=== PATIENT | female | born 1955 | race Caucasian/White ===

== ENCOUNTER → 2017-04-08 05:51 | Day surgery (SDC) | payer BC ==
--- NOTE | 2017-03-28 20:29 | HP ---
HISTORY AND PHYSICAL: DATE OF ADMISSION/SURGERY: 04/08/17 DATE OF HISTORY AND PHYSICAL: 03/28/17 SURGEON: Dayne Rodas MD * (DICTATED BY CARLEE Glover) PROCEDURE: Left foot naviculocuneiform fusion, tibial bone graft. CHIEF COMPLAINT: Left foot pain. HISTORY OF PRESENT ILLNESS: Rosana is a 61-year-old female, who has ongoing pain in her left ankle. She has had numerous surgeries on this ankle in the past. She has a previous hind foot fusion with significant degenerative changes at the cuneonavicular level. She has undergone multiple cortisone injections under fluoroscopy and these seem to be less effective overtime. She is having a hard time making it to 3 months between her injections. She continues to have significant swelling in the foot and ankle. She denies any paresthesias or numbness. Denies any new injuries. At her last appointment on 03/01/17, she and Dr. Rodas discussed surgical intervention to fuse the cuneonavicular joint and she is here today for physical H and P to proceed with the procedure. She denies any problems with anesthesia in the past or with DVT or PE. She does endorse having a history of significant hypotension post anesthesia. At her last surgery, a few years ago, she had hypotension and very poor pain control. I was concerned that she may need to be admitted for control of her pain as well as hypotension. PAST MEDICAL HISTORY: Significant for hypertension, allergic rhinitis, chronic cough, GERD, dyslipidemia, and insomnia. PAST SURGICAL HISTORY: Significant for 12 left ankle surgeries including a fusion and right knee surgeries including ACL repair, total knee arthroplasty, 12 manipulations, and a total knee arthroplasty revision. MEDICATIONS: 1. Tessalon Perles 100 mg 1 capsule 2 to 3 times daily as needed. 2. Lansoprazole 30 mg daily. 3. Tramadol 50 mg as needed. 4. Colestipol HCl 1 g twice daily. 5. Atorvastatin 10 mg 1 tab daily. 6. Ibuprofen 800 mg 3 times a day as needed. 7. Zolpidem 6.25 mg daily at night. 8. Aspirin 81 mg daily. 9. Vitamin D3 1000 International Units twice daily. 10. Vitamin C 500 mg daily. 11. Tekturna HCT 150-25mg 1 tab daily. 12. Breo Ellipta 200/25 mcg per inhalation, 1 inhalation daily. 13. Levocetirizine 5 mg daily. ALLERGIES: COBALT. She also reports adverse reaction of diarrhea with ERYTHROMYCIN FAMILY MEDICAL HISTORY: Significant for mother with lymphoma, congestive heart failure. No family history of DVT or PE. SOCIAL HISTORY: Negative for tobacco use. She drinks about 14 drinks per week of alcohol and she denies any illicit drug use. REVIEW OF SYSTEMS: Positive for intermittent headache, chronic cough, diarrhea , her current complaint. She denies any history of DVT or PE and she endorses ability to walk a flight of stairs or a city block without chest pain or shortness of breath. Otherwise a 14 point review of systems was negative. PHYSICAL EXAMINATION GENERAL: She is a well-nourished, well-developed, 61-year-old female in no acute distress. She is alert and oriented x3. She ambulates with an antalgic gait. She has normal mood and affect. VITAL SIGNS: Height 64 inches, weight 204 pounds, blood pressure 132/78, respirations 18, temp 98.3. Pain level 3. BMI 35.0. HEENT: NCAT, PERRLA, EOMI, neck is supple. No palpable cervical lymph node. Thyroid is smooth and nontender. PULMONARY: Lungs clear to auscultation bilaterally with no wheezes, rales, or rhonchi. CARDIAC: Regular rate and rhythm. No murmurs, rubs, or gallops. No pedal edema, 2+ DP and PT pulses bilaterally. ABDOMEN: Soft and nontender. MUSCULOSKELETAL: Her skin shows an incision at the anterior aspect of the ankle but it is well healed. There is no surrounding erythema. No swelling or ecchymosis. There is no significant edema throughout the ankle joint. There is no gross deformity. She has very limited hind foot range of motion. She is tender to palpation over the cuneonavicular joint and has pain with passive stress of this joint. She is able to flex and extend at her MTP joint. Her sensation is intact to light touch bilaterally. DIAGNOSTIC STUDIES: Obtained on 03/01/17 of the left ankle showed diffuse osteopenia and osteoarthritis of the subtalar joint and the cuneonavicular joint. IMPRESSION: Left foot arthritis. PLAN: Rosana is scheduled to undergo left foot naviculocuneiform fusion with tibial bone graft with Dr. Dayne Rodas on 04/08/17. She will return to clinic in about 14 days for postop and suture removal. A prescription for pain medication will be sent to the patient's pharmacy of record on the day of operation. CARLEE GARCIA [id number]/[facility] #: [id number] ISAC
[~2017-04-08 05:51] MED LIST: Buffered Lidocaine 0.9% SYRIN* 5 ML/SYR SYRINGE INTRADERM ONE; Buffered Lidocaine 0.9% SYRIN* 5 ML/SYR SYRINGE ONE; Bupivacaine 0.5% SDV PF* 10-30ML VIAL ONE; Dexamethasone IV* 4 MG/ML 1 ML (4 MG) IV SLOW PU ONE; Dexamethasone IV* 4 MG/ML 1 ML (4 MG) ONE; DiMENhydriNATE IV* 50 MG/ML VIAL IV PUSH PRN; Famotidine IV* 10 MG/ML 2 ML (20 mg) IV ONE; Famotidine IV* 10 MG/ML 2 ML (20 mg) ONE; HYDROmorphone INJ* 1 MG/ML CARPUJECT SYRINGE IV PRN; HYDROmorphone INJ* 2 MG/ML CARPUJECT SYRINGE ONE; KETAMINE HCL* 50 MG/ML 10 ML VIAL ONE; Ketorolac INJ* 30 MG/ML 1 ML VIAL ONE; Lidocaine 2% PF * 5 ML VIAL ONE; Midazolam* 1 MG/ML 2 ML VIAL (2 MG) ONE; Naloxone* 0.4 MG/ML 1 ML VIAL IV PRN; Ondansetron INJ* 2 MG/ML VIAL ONE; ceFAZolin 2 GM PREMIX (*) 2 GM/50 ML BAG IVPB ONE; fentaNYL* 50 MCG/ML 2 ML VIAL (100 MCG VIAL) ONE; nitroGLYCERIN IV VIAL* 5 MG/ML VIAL ONE; oxyCODONE TAB* 5 MG TAB ONE
[2017-04-08] MEDS: fentaNYL* 50 MCG/ML 2 ML VIAL (100 MCG VIAL) IV PRN ×2 (10:11→10:23)
[2017-04-08 16:06] VITALS: BP 129/71
--- NOTE | 2017-04-09 07:26 | RAD ---
INDICATION: Posttraumatic osteoarthritis, left ankle and foot COMPARISONS: March 01, 2017 TECHNIQUE: Fluoroscopy was provided for a surgical procedure. Total fluoroscopy time is: 4.2 seconds FINDINGS: Spot images demonstrate partial removal of fixation plate and screws of the ankle and hindfoot. IMPRESSION: FLUOROSCOPY WAS PROVIDED FOR A SURGICAL PROCEDURE CPT II Codes: 6045F
--- NOTE | 2017-04-09 13:07 | OP ---
DATE OF OPERATION: 04/08/17 - [facility] DATE OF : 53 SURGEON: Dayne Rodas MD SENIOR POWER PLANT OPERATOR: Qi Cotter PA-C ANESTHESIOLOGIST: Riley Soto MD ANESTHESIA: MAC PRE-OP DIAGNOSIS: Previous talonavicular fusion and now naviculocuneiform arthritis, left midfoot. POST-OP DIAGNOSIS: Previous talonavicular fusion and now naviculocuneiform arthritis, left midfoot. OPERATIVE PROCEDURE: Hardware removal, left talonavicular joint; fusion, left naviculocuneiform joint with tibial bone graft. DESCRIPTION OF PROCEDURE: The patient was taken to the operating room where a longitudinal incision was reopened over the dorsal aspect of her left midfoot. We went lateral to the EHL tendon, basically down to bone, as this was a previously incised area. The plates were exposed over the talonavicular fusion. These were F3 plates. The screws were easily visible. The plates were not overgrown with bone. We attempted to remove the screws with the supplied F3 screwdriver. Three different screwdrivers broke during this process. We were only able to remove all the screws except for 3; 2 in the lateral plate, 1 in the medial plate. These screws were over-burred so the plates could be removed and then 2 other screws were removed using the [employer] screw removal kit. One of the more proximal screws was left. We then used the retractor to open the naviculocuneiform joint. A power brionna 2.4 mm in size was used to repair the joint for arthrodesis. Through proximal incision over the Gerdy's tubercle, cancellous bone was harvested through a corticotomy approximately 1 cm in size. This cancellous bone was mixed with some allograft chips and some DBX putty placed along the naviculocuneiform joint. We then patched some allograft chips proximally at Gerdy's tubercle closing the periosteum with 2-0 Vicryl subcu tissue and then Monocryl for the skin. Fixation of the naviculocuneiform joint was then performed under compression using a T-shaped plate and an L-shaped plate of the [employer] titanium mini frag set, 2.7 mm screws were used. X-rays intraoperatively showed satisfactory compression and alignment of the joint and the hardware. We then irrigated this dorsal wound and closed with 2-0 Vicryl, 3 -0 nylon and plaster dressing applied. [id number]/[facility] #: [id number] ISAC
== END | disposition home or self-care (01) ==
LOC: OR 05:51
PROVIDERS: ATTEND Orthopaedic Surgery
DX: M19.172 Post-traumatic osteoarthritis, left ankle and foot (principal); I10 Essential (primary) hypertension; K21.9 Gastro-esophageal reflux disease without esophagitis; E78.5 Hyperlipidemia, unspecified; D47.3 Essential (hemorrhagic) thrombocythemia
CPT/HCPCS: 76000; 88300; A9270-GY; C1713; C1776; C9359; J0690; J1100; J1170; J1885; J2250; J2405; J3010

== ENCOUNTER 2017-05-18 12:17 | Emergency (ER) | payer BC ==
--- OUTSIDE RECORDS SUMMARY | 2017-05-18 12:22 | XMS REPORT ---
:1955 External Reference #:[id number] Author Organization [facility] Address [address] [address] Phone [phone] Care Team Providers Name Role Phone Velma Villasenor MD Primary Care Physician Unavailable Payers Type Date Identification Numbers Payment Provider Subscriber Commercial Effective: Policy Number: [id number] BS [employer]ets Rosana Gramajo 2014 PayID: [id number] [address] [address] [place] [address] Medigap Part B Effective: 2012 Policy Number: [id number] [employer]ets Rosana Gramajo Expires: 2013 PayID: [id number] [address] [address] [place] [address] Medigap Part B Effective: 2010 Policy Number: [id number] BS Of [place] Gramajo Expires: 2012 PayID: [id number] [address] [address] [place] [address] Problems Date Description Provider Status Onset: 07/11/2016 Cough Genevieve Ch MD Active Onset: 07/11/2016 Difficulty breathing Genevieve Ch MD Active Onset: 07/11/2016 Essential hypertension Genevieve Ch MD Active Onset: 07/11/2016 Allergic rhinitis Genevieve Ch MD Active Onset: 08/14/2016 Obstructive sleep apnea syndrome Genevieve Ch MD Active Family History Date Family Member(s) Problem(s) Comments General Heart Disease Father due to Dementia () Mother due to CHF () Mother due to Lymphoma () Siblings 1 Social History Type Date Description Comments Marital Status 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 Cigarette Use Former Cigarette Smoker ETOH Use Drinks 5 Alcoholic Beverages Per Week Recreational Drug Use Never Used Drugs Smoking Patient is a former smoker quit in 1997, smoked for 20yrs 1PPD Daily Caffeine Consumes on average 8oz of iced tea per day Daily Caffeine Consumes on average 1 soda per less than one per day day Exercise Type/Frequency Exercises sporadically Allergies, Adverse Reactions, Alerts Date Description Reaction Status Severity Comments 09/24/2013 Orick active 08/14/2016 Erythromycin active Severe Diarreah 06/25/2013 NKDA inactive Medications Medication Date Status Form Strength Qnty SIG Indications Ordering Provider Valium 04/18 Active Tablets 2mg 30tab take 1-2 s tablet by Clark, mouth every M.D. 6 hours as needed for muscle spasm. Oxycodone HCL 04/08 Active Tablets 5mg 40tab 1-2 tabs by s mouth every Clark, 4-6 hours M.D. as needed Walker 03/28 Active Misc Disp #1 Handy Rodas Knee Scooter 03/28 Active Disp #1 Handy Rodas Benzonatate 10/26 Active Capsules 100mg 30cap 1 capsule R05 s 2-3 times a Jing, day as MD needed Xylitol 07/11 Active Nasal 1-2 sprays J30.9 [place] each Jing, nostril twice daily Lansoprazole Active 30mg daily Unknown /0000 Tramadol HCL Active 50mg prn Unknown / Colestipol HCL Active Tablets 1gm 1 by mouth Unknown /0000 twice a day Atorvastatin Active Tablets 10mg 1 by mouth Unknown Calcium /0000 every day Ibuprofen Active Tablets 800mg by mouth Unknown /0000 three times a day as needed Qnasl Active Aerosol 80mcg/Act 2 Unknown /0000 inhalations in each nostril once daily Zolpidem Tartrate Active Tablets 6.25mg take one Unknown ER /0000 ER tablet by mouth at night Aspirin Active Chewtabs 81mg 1 by mouth Unknown /0000 every day Vitamin D3 High Active Capsules 1000Unit 2 by mouth Unknown Potency /0000 every day Vitamin C Active Capsules 500mg 1 by mouth Unknown /0000 every day Tekturna HCT Active Tablets 150-25mg 1 tab daily Unknown Breo Ellipta Active Aerosol 200-25mcg one Unknown / inhalation daily Levocetirizine Active Tablets 5mg 1 by mouth Unknown Dihydrochloride every day Cyclobenzaprine 04/15 Hx Tablets 5mg 15tab 1 tab by Dayne FINCH s mouth pavan Rodas, - times a day M.DLuis Eduardo 04/18 as needed Metoprolol-Hydroch 07/20 Hx Tablets 50-25mg 30tab 1 tablet by Genevieve lorothiazide s mouth daily Mikhail Ch MD 08/13 Hydrochlorothiazid 07/11 Hx Tablets 25mg 30tab 1 tablet I10 Genevieve e s daily Mikhail Ch MD 08/13 Amlodipine 07/11 Hx Tablets 5mg 30tab 1 tablet by I10 Genevieve Besylate s mouth daily Mikhail Ch MD 10/25 Oxycodone HCL 09/10 Hx Tablets 5mg 60tab 1-2 po qid Dayne s prn Clark - Handy 09/23 Lipitor Hx 10mg Unknown / - 07/10 Lisinopril-Hydroch Hx Unknown lorothiazide / - 08/14 Claritin Hx Chewtabs 5mg Unknown - 10/25 Vital Signs Date Vital Result Comment 05/09/2017 Height 64 inches 5'4" Weight 204.00 lb Heart Rate 66 /min Respiratory Rate 15 /min Body Temperature 98.4 F Pain Level 0 BMI (Body Mass Index) 35.0 kg/m2 04/18/2017 Height 64 inches 5'4" Weight 204.00 lb Heart Rate 93 /min BP Systolic 133 mmHg BP Diastolic 83 mmHg Body Temperature 97.9 F BMI (Body Mass Index) 35.0 kg/m2 03/28/2017 Height 64 inches 5'4" Weight 204.00 lb BP Systolic 132 mmHg BP Diastolic 78 mmHg Respiratory Rate 18 /min Body Temperature 98.3 F Pain Level 3 BMI (Body Mass Index) 35.0 kg/m2 03/01/2017 Height 64 inches 5'4" Weight 190.00 lb BP Systolic 126 mmHg BP Diastolic 82 mmHg Respiratory Rate 18 /min Pain Level 3 BMI (Body Mass Index) 32.6 kg/m2 10/26/2016 Height 64 inches 5'4" Weight 216.00 lb Heart Rate 74 /min BP Systolic Sitting 120 mmHg BP Diastolic Sitting 76 mmHg Respiratory Rate 16 /min O2 % BldC Oximetry 97 % room air BMI (Body Mass Index) 37.1 kg/m2 08/14/2016 Height 64 inches 5'4" Weight 200.00 lb Heart Rate 82 /min BP Systolic Sitting 132 mmHg BP Diastolic Sitting 80 mmHg Respiratory Rate 16 /min Pain Level 5 Joint pain O2 % BldC Oximetry 96 % BMI (Body Mass Index) 34.3 kg/m2 07/11/2016 Height 64 inches 5'4" Weight 205.00 lb Heart Rate 77 /min BP Systolic Sitting 118 mmHg BP Diastolic Sitting 82 mmHg Respiratory Rate 16 /min Pain Level 0 O2 % BldC Oximetry 98 % BMI (Body Mass Index) 35.2 kg/m2 07/15/2015 Height 64 inches 5'4" Weight 190.00 lb Pain Level 8 BMI (Body Mass Index) 32.6 kg/m2 01/27/2015 Height 64 inches 5'4" Weight 190.00 lb Pain Level 5 BMI (Body Mass Index) 32.6 kg/m2 07/29/2014 Height 64 inches 5'4" Weight 190.00 lb Pain Level 7 BMI (Body Mass Index) 32.6 kg/m2 04/08/2014 Height 64 inches 5'4" Weight 190.00 lb Pain Level 2 BMI (Body Mass Index) 32.6 kg/m2 01/06/2014 Height 64 inches 5'4" Heart Rate 85 /min BP Systolic 124 mmHg BP Diastolic 91 mmHg 09/24/2013 Height 64 inches 5'4" Weight 175.00 lb Heart Rate 80 /min Pain Level 4 BMI (Body Mass Index) 30.0 kg/m2 06/25/2013 Height 64 inches 5'4" Weight 175.00 lb Heart Rate 76 /min BP Systolic 135 mmHg BP Diastolic 96 mmHg BMI (Body Mass Index) 30.0 kg/m2 Results Test Date Test Result H/L Range Note Laboratory test 04/08/2017 Surgical Pathology SEE RESULT BELOW 1 finding Laboratory test 04/07/2017 Cancellous Chips 5cc SEE RESULTS BELO 2, 3 finding <SEE NOTE> DBX 2.5 SEE RESULTS BELO <SEE NOTE> 2, 4 Basic Metabolic Panel 08/26/2012 Sodium 140 mmol/L 133-145 Potassium 4.8 mmol/L 3.5-5.0 Chloride 109 mmol/L 101-111 Co2 Carbon Dioxide 26.0 mmol/L 22-32 Anion Gap 5.0 mmol/L 2-11 Glucose 78 mg/dL 70-100 Blood Urea Nitrogen 18 mg/dL 6-24 Creatinine 0.80 mg/dL 0.50-1.40 BUN/Creatinine Ratio 22.5 High 8-20 Calcium 9.8 mg/dL 8.1-9.9 Egfr Non- 73.9 >60 Egfr 95.1 >60 5 CBC Auto Diff 08/26/2012 White Blood Count 6.7 10^3/uL 4.8-10.8 Red Blood Count 4.40 10^6/uL 4.0-5.4 Hemoglobin 13.9 g/dL 12.0-16.0 Hematocrit 41 % 35-47 Mean Corpuscular Volume 93 fL 80-97 Mean Corpuscular Hemoglobin 32 pg High 27-31 Mean Corpuscular HGB Conc 34 g/dL 31-36 Red Cell Distribution Width 14 % 10.5-15 Platelet Count 416 10^3/uL 150-450 Mean Platelet Volume 8 um3 7.4-10.4 Abs Neutrophils 4.3 10^3/uL 1.5-7.7 Abs Lymphocytes 1.7 10^3/uL 1.0-4.8 Abs Monocytes 0.5 10^3/uL 0-0.8 Abs Eosinophils 0.1 10^3/uL 0-0.6 Abs Basophils 0.1 10^3/uL 0-0.2 Abs Nucleated RBC 0.01 10^3/uL Granulocyte % 63.8 % 38-83 Lymphocyte % 25.7 % 25-47 Monocyte % 7.7 % 1-9 Eosinophil % 1.9 % 0-6 Basophil % 0.9 % 0-2 Nucleated Red Blood Cells % 0.1 1 SEE RESULT BELOW Name: ROSANA GRAMAJO : [address]: Dayne Rodas MD Acct: [id number] Unit: [id number] AGE: 61 Location: OR Re04/08/17 SEX: F Status: REG [facility] [place] SPEC: [id number] CATHY: 04/08/17-[address]: Dayne Rodas MD REQ: [id number] RECD: 04/08/17 STATUS: SOUT _ ORDERED: LEVEL 1 FINAL DIAGNOSIS Ankle, left, hardware removal: Foreign body (orthopedic hardware) (Gross diagnosis). PRE-OPERATIVE DIAGNOSIS Post traumatic osteoarthritis left ankle and foot GROSS DESCRIPTION The specimen is received fresh labeled, Left Ankle Hardware, and consists of two green metallic irregular plates with multiple ovoid holes measuring 3.8 by up to 1.3 x 0.1 cm and 4.1 by up to 1.6 x 0.1 cm. The following inscriptions are identified, respectively: [id number] M0 02900 QU0253; 131 [id number]. Received separately in the same container are six green metallic threaded Cortez-headed screws ranging from 2.2 x 0.2 cm to 2.6 x 0.2 cm and four gold metallic partially intact threaded Cortez-headed screws averaging 2.5 x 0.2 cm. Per established hospital medical staff protocol, no tissue is submitted. Gross only. Signed (signature on file) Pippa Fairchild MD 1140 END OF REPORT * ML=Testing performed at Main Lab DEPARTMENT OF PATHOLOGY, [address] [place] [address] Arnel Sheldon M.D. Director [facility] # [id number] 2 POST-TRAUMATIC OSTEOARTHRITIS, LEFT ANKLE AND FOOT 3 SEE RESULTS BELOW [id number] CANC CHIPS 5CC TRANSFUSED 04/08/17 07 [id number] CANC CHIPS 5CC TRANSFUSED 04/08/17705 4 SEE RESULTS BELOW [id number] DBX 2.5 TRANSFUSED 04/08/17705 5 Because ethnic data is not always readily available, this report includes an eGFR for both -Americans and non- Americans. The National Kidney Disease Education Program (NKDEP) does not endorse the use of the MDRD equation for patients that are not between the ages of 18 and 70, are , have extremes of body size, muscle mass, or nutritional status, or are non- or non-. According to the National Kidney Foundation, irrespective of diagnosis, the stage of the disease is based on the level of kidney function: Stage Description GFR(mL/min/1.73 m(2)) 1 Kidney damage with normal or decreased GFR 90 2 Kidney damage with mild decrease in GFR 60-89 3 Moderate decrease in GFR 30-59 4 Severe decrease in GFR 15-29 5 Kidney failure <15 (or dialysis) Procedures Date CPT Code Description Status 04/08/2017 36783 Arthrodesis Midtarsal/Tarsometatarsal Single Completed 04/08/2017 38892 Arthrodesis Midtarsal/Tarsometatarsal Single Completed 04/08/2017 Bone Graft Any Donor Area Minr Or SM (Eg Dowel Or Completed Button) 04/08/2017 Bone Graft Any Donor Area Minr Or SM (Eg Dowel Or Completed Button) 04/08/2017 Removal Implant Deep Wire,Screw Nail,Balaji Or Plate Completed 07/25/2016 64257 Sleep Study Unattended,HRT Rate,Oxygen Sat,Resp Completed Effort/Airflow 12/05/2012 22309 Rad Exam; Foot Limited Completed 09/22/2012 72574 Short Leg Cast Completed 09/22/2012 14346 Rad Exam; Foot Limited Completed 09/22/2012 55570 Rad Exam; Foot Comp Completed 09/02/2012 45903 Arthrodesis Midtarsal/Tarsometatarsal Single Completed 09/02/2012 03566 Arthrodesis Midtarsal/Tarsometatarsal Single Completed 09/02/2012 89190 Bone Graft, Any Donor Area Major Or Large Completed 09/02/2012 50571 Bone Graft, Any Donor Area Major Or Large Completed 08/27/2011 90912 Rad Exam; Foot Limited Completed 08/27/2011 25663 Rad Exam; Ankle Comp Completed 01/22/2011 86791 Rad Exam; Ankle Comp Completed Encounters Type Date Location Provider CPT E/M Dx Office Visit 03/01/2017 [facility] 33028 M19.172 9:30a Ndihi Murrell Office Visit 10/26/2016 [facility] [address] R05 9:30a [facility] G47.33 Office Visit 08/14/2016 2:00p [facility] [address] G47.33 [facility] R05 Office Visit 07/11/2016 11:00a Pul[place] [address] R05 [facility] T46.4x5A J30.9 R06.83 R35.1 R68.2 H04.123 K21.9 Office Visit 07/15/2015 11:30a [facility] 11016 M19.072 Nidhi Murrell Office Visit 01/27/2015 2:00p [facility] 06162 M19.072 CLayla Murrell Office Visit 07/29/2014 2:00p [facility] 11588 715.17 CLayla Murrell 719.47 Office Visit 04/08/2014 4:15p [facility] 30036 715.17 [facility] Handy 719.47 Office Visit 01/06/2014 3:15p [facility] Dayne Rodas M.D. 86215 715.17 Of [facility] Office Visit 09/24/2013 1:00p [facility] Dayne Rodas M.D. 63251 715.17 Of [facility] Office Visit 06/25/2013 4:00p [facility] Dayne Rodas M.D. 76690 715.17 Of [facility] Office Visit 03/27/2013 4:00p [facility] Dayne Rodas M.D. 38289 715.17 Of C.[facility] Office Visit 12/26/2012 4:30p [facility] Dayne Rodas M.D. 12725 715.17 Of C.M.[facility]. Office Visit 12/05/2012 9:45a [facility] Dayne Rodas M.D. 58180 715.17 Of C.M.[facility]. Office Visit 08/20/2012 12:45p [facility] Dayne Rodas M.D. 70181 715.17 Of [facility] Office Visit 07/25/2012 4:15p [facility] Dayne Rodas M.D. 33723 715.17 Of C.[facility] Office Visit 02/01/2012 9:30a [facility] Dayne Rodas M.D. 98096 715.17 Of C.[facility]. Office Visit 08/27/2011 9:30a [facility] Dayne Rodas M.D. 33959 715.17 Of C.M.[facility]. Office Visit 08/01/2011 4:15p [facility] Dayne Rodas M.D. 74526 728.71 Of C.M[facility]. Office Visit 06/13/2011 4:00p [facility] Dayne Rodas M.D. 90853 726.71 Of C.[facility] Office Visit 05/29/2011 8:45a [facility] Silas López M.D. 07653 726.71 Of C[facility] Office Visit 05/01/2011 8:00a [facility] Silas López M.D. 19552 726.71 Of [facility] Office Visit 03/06/2011 8:00a [facility] Rohith Myrick 27261 726.71 Of Josh Parra Office Visit 01/22/2011 9:15a [facility] Sharla 39257 726.71 Of Nidhi Stapleton M.D. Plan of Care Future Appointment(s):05/30/2017 9:00 am - Dayne Rodas M.D. at [facility]05/09/2017 - Dayne Rodas M.D.M19.172 Post-traumatic osteoarthritis, left ankle and footNew Xrays:Foot Left 3+ VWSFollow up:3 weeks
[2017-05-18] MEDS ORDERED: Diazepam SYRINGE* 5 MG/ML 2 ML SYRINGE (10 MG total) IV ONE (12:41)
[2017-05-18] MEDS ORDERED: Dexamethasone IV* 4 MG/ML 5 ML VIAL (20 MG) IVPB ONE (12:41)
[2017-05-18] MEDS ORDERED: Ketorolac INJ* 30 MG/ML 1 ML VIAL IV PUSH ONE (12:41)
[2017-05-18] MEDS ORDERED: Diazepam INJ (NF) 5 MG/ML 10 ML VIAL (50 MG TOTAL) IV ONE (13:00)
[2017-05-18 13:27] LABS: ABS Basophils 0.1 10^3/ul (0-0.2); ABS Eosinophils 0.1 10^3/ul (0-0.6); ABS Monocytes 0.7 10^3/ul (0-0.8); ABS Nucleated RBC 0 10^3/ul; Eosinophil % 0.7 % (0-6); Hematocrit 37 % (35-47); Hemoglobin 12.6 g/dl (12.0-16.0); Mean Corpuscular HGB Conc 34 g/dl (31-36); Mean Corpuscular Hemoglobin 30 pg (27-31); Mean Corpuscular Volume 89 fL (80-97); Mean Platelet Volume 8 um3 (7.4-10.4); Nucleated Red Blood Cells % 0; Platelet Count 612 10^3/ul (150-450); Red Blood Count 4.21 10^6/ul (4.0-5.4); Red Cell Distribution Width 13 % (10.5-15); White Blood Count 8.8 10^3/ul (3.5-10.8)
[2017-05-18 13:38] LABS: INR 0.98 (0.77-1.02)
[2017-05-18 13:42] LABS: EGFR Non-African American 89.2 (>60)
[2017-05-18] MEDS ORDERED: Potassium Chlor TAB* 20 MEQ TAB.ER PO ONE (13:48)
[2017-05-18] MEDS ORDERED: HYDROmorphone INJ* 2 MG/ML CARPUJECT SYRINGE IV SLOW PU ONE (14:24)
--- NOTE | 2017-05-18 15:46 | RAD ---
Indication: Evaluate for cord compression. Image sequences: Sagittal T1, T2, STIR, axial T2 and gradient echo images of the cervical spine were obtained. The vertebral bodies appear normal in height. There is straightening of the normal lordosis. The atlantoaxial space is unremarkable. The visualized fantasma and brainstem are unremarkable. At C2-C3 and C3-C4 there is no disc protrusion. At C4-C5 there is spondylitic ridge with bilateral uncovertebral joint hypertrophy narrows both foramen. At C5-C6 spondylitic ridge flattens the thecal sac. Small to moderate Broad-based protrusion is noted. Bilateral uncovertebral hypertrophy narrows both foramen worse on the right than on the left. There may be some mild spinal stenosis at this level. At C6-C7 spondylitic ridge with broad-based protrusion flattens the thecal sac. Bilateral uncovertebral joint hypertrophy narrows both intervertebral foramen. There may be some mild increased signal in the spinal cord which may represent mild myelomalacia. Mild to moderate degree of spinal stenosis is noted. At C7-T1 the disc space appears normal. IMPRESSION: C5-C6 spondylitic ridge with broad-based protrusion and right foraminal stenosis with mild to moderate spinal C6-C7 degenerative disc disease, broad-based protrusion, spondylitic ridge and bilateral uncovertebral joint hypertrophy narrows both intervertebral foramen. There may be some moderate degree of spinal stenosis at this level. There may be some mild myelomalacia with minimal increase in signal cervical spinal cord at this level.
[2017-05-18 17:19] VITALS: BP 138/78
--- NOTE | 2017-05-18 17:27 | ED ---
Florentin Walter Nilda, scribed for Ashley Nolan MD on 05/18/17 at 1252 . Neck Pain - HPI Summary HPI Summary: This patient is a 61 year old F BIBA to [facility] accompanied by with a chief complaint of constant severe neck pain that radiates to bilat shoulder for the past 2 weeks that worsened yesterday. The patient rates the pain 10/10 in severity. Symptoms aggravated by movement, and alleviated by rest. Patient states Tylenol and Oxycodone do not alleviate pain. Patient reports limited ROM in bilat UE secondary to pain (unable to lift arms past stomach). Patient denies numbness in hands, urinary or bowel symptoms or incontinence, and previous injury. She notes recent ankle fusion a few weeks ago for necrotic joints, for which she was on the table for 2 hours. - History of Current Complaint Stated Complaint: NECK PAIN Time Seen by Provider: 05/18/17 12:18 Hx Obtained From: Patient Onset/Duration Of Injury/Symptoms: Weeks Mechanism Of Injury: No Known Trauma Timing: Constant Onset/Duration: Sudden Onset, Started weeks ago, Still Present Severity Currently: Severe Pain Intensity: 10 Pain Scale Used: 0-10 Numeric Location: Discrete At: - neck and bilat shoulders Character: Stiff Aggravating Factors: Movement Alleviating Factors: Position Associated Signs & Symptoms: Positive: Nuchal Rigity. Negative: Swelling, Redness, Bruising, Fever, Weakness, Headache, Paresthesia - Allergies/Home Medications Allergies/Adverse Reactions: Allergies Allergy/AdvReac Type Severity Reaction Status Date / Time cobalt Allergy Intermediate See Comment Verified 05/18/17 12:46 rofecoxib Allergy Unknown Unknown Verified 05/18/17 12:46 Reaction Details amoxicillin AdvReac Intermediate Abdominal Verified 05/18/17 12:46 Pain clavulanic acid AdvReac Intermediate Abdominal Verified 05/18/17 12:46 Pain SEAFOOD Allergy Unknown Uncoded 04/08/17 06:21 Reaction Details Home Medications: Home Medications Aliskiren/Hydrochlorothiazide [Tekturna Hct 150-25 mg Tablet] 1 tab PO DAILY [History Confirmed 05/18/17] Beclomethasone Dipropionate [Qnasl] 17.4 gm ALT NARE QAM 05/18/17 [History Confirmed 05/18/17] Ibuprofen TAB* [Motrin TAB* 800 MG] 800 mg PO Q8HR PRN 05/18/17 [History Confirmed 05/18/17] Lansoprazole SOLUTAB* [Prevacid Solutab*] 30 mg PO DAILY 05/18/17 [History Confirmed 05/18/17] Zolpidem CR (NF) [Ambien CR (NF)] 6.25 mg PO BEDTIME 05/18/17 [History Confirmed 05/18/17] oxyCODONE TAB* [Roxycodone TAB 5 mg*] 5 - 10 mg PO .Q4-6H PRN MDD 80 mg [History Confirmed 05/18/17] traMADol TAB* [Ultram*] 50 mg PO TID PRN 05/18/17 [History Confirmed 05/18/17] PMH/Surg Hx/FS Hx/Imm Hx Endocrine/Hematology History: Reports: Hx Anticoagulant Therapy - not recent Denies: Hx Diabetes, Hx Systemic Lupus Erythematosus Cardiovascular History: Reports: Hx Hypertension - ON MEDS, Other Cardiovascular Problems/Disorders - HIGH CHOLESTEROL Denies: Hx Angina, Hx Cardiomegaly, Hx Congestive Heart Failure, Hx Coronary Artery Disease, Hx Pacemaker/ICD, Hx Peripheral Vascular Disease, Hx Rheumatic Fever, Hx Valvular Heart Disease Respiratory History: Denies: Hx Asthma, Hx Pulmonary Edema, Hx Pulmonary Embolism, Hx Sleep Apnea , Other Respiratory Problems/Disorders GI History: Reports: Other GI Disorders - DIARRHEA RELATED TO ABDULLAHI Comment Only: Hx Gastroesophageal Reflux Disease - TAKES PREVACID FOR PROTECTION ONLY History: Denies: Hx Dialysis, Hx Renal Disease Musculoskeletal History: Reports: Hx Arthritis - JOINTS, KNEES ANKLES, Other Musculoskeletal History - RIGHT TOTAL KNEE TWO TIMES Denies: Hx Rheumatoid Arthritis Sensory History: Denies: Hx Cataracts, Hx Contacts or Glasses, Hx Glaucoma, Hx Hearing Aid Opthamlomology History: Denies: Hx Cataracts, Hx Contacts or Glasses, Hx Glaucoma Psychiatric History: Denies: Hx Panic Disorder - Cancer History Hx Chemotherapy: No - Surgical History Surgery Procedure, Year, and Place: left ankle fusions (multiple); right TKR and replacement 2009, ERCP 2011, gallbladder remover 03/19/12. NUMEROUS SURGERY ON LEFT ANKLE [facility] [place] [place]. AT LEAST 15 SURGERIES Hx Anesthesia Reactions: Yes - HYPOTENSIVE AFTER SURGERY. DOESN'T WANT SPINAL Infectious Disease History: Reports: Hx Shingles Denies: Traveled Outside the [place] in Last 30 Days - Family History Known Family History: Positive: Hypertension - Social History Alcohol Use: Weekly Alcohol Amount: 2 BEERS A WEEK Substance Use Type: Reports: None, Prescribed Smoking Status (MU): Former Smoker Have You Smoked in the Last Year: No Review of Systems Positive: Other - negative bowel incontinence Positive: other - negative urinary symptoms . Negative: incontinence Positive: Other - neck pain with bilat shoulder pain, limited ROM in bilat UE and neck secondary to pain; negative previous injury Negative: Numbness - negative numbness in hands All Other Systems Reviewed And Are Negative: Yes Physical Exam - Summary Physical Exam Summary: VITAL SIGNS: Reviewed. GENERAL: Patient is a well-developed and nourished female who is lying comfortable in the stretcher. Patient is not in any acute respiratory distress. HEAD AND FACE: No signs of trauma. No ecchymosis, hematomas or skull depressions. No sinus tenderness. EYES: PERRLA, EOMI x 2, No injected conjunctiva, no nystagmus. EARS: Hearing grossly intact. Ear canals and tympanic membranes are within normal limits. MOUTH: Oropharynx within normal limits. NECK: Supple, trachea is midline, no adenopathy, no JVD, no carotid bruit, tender over right side of neck, unable to move neck in any direction because of pain (no flexion, extension, or side to side movement) CHEST: Symmetric, no tenderness at palpation LUNGS: Clear to auscultation bilaterally. No wheezing or crackles. CVS: Regular rate and rhythm, S1 and S2 present, no murmurs or gallops appreciated. ABDOMEN: Soft, non-tender. No signs of distention. No rebound no guarding, and no masses palpated. Bowel sounds are normal. EXTREMITIES: FROM in all major joints, no edema, no cyanosis or clubbing. NEURO: Alert and oriented x 3. Speech is normal and follows commands. Unable to abduct both arms beyond 20 degrees due to pain. Sensory exam intact. SKIN: Dry and warm Triage Information Reviewed: Yes Vital Signs Reviewed: Yes Diagnostics - Laboratory Result Diagrams: 05/18/17 13:16 05/18/17 13:16 Lab Statement: Any lab studies that have been ordered have been reviewed, and results considered in the medical decision making process. - Radiology MRI C-spine Radiology Interpretation Completed By: Radiologist - MRI reveals C5-C6 spondylitic ridge with broad-based protrusion and right foraminal stenosis with mild to moderate spinal C6-C7 degenerative disc disease, broad-based protrusion , spondylitic ridge and bilateral uncovertebral joint hypertrophy narrows both intervertebral foramen. There may be some moderate degree of spinal stenosis at this level. There may be some mild myelomalacia with minimal increase in signal cervical spinal cord at this level. Dr. Nolan has reviewed this radiology report. Re-Evaluation - Re-Evaluation First Eval Re-Evaluation Time: 16:44 Comment: Patient was informed that alkaline phosphatases are elevated and she is aware that it's high. She is being followed by GI for this. I ordered lab to fractionate Alkaline phosphatase. Pt advised to have PCP follow up with this issue. Neck Course/Dx - Course Assessment/Plan: Pt is a 61 y/o who came in with neck pain that radiates to shoulders and arms. MRI showed herniated disc. Case discussed with Radha who is the PA for Dr. Coles (Neurosurgeon). She and Dr. Coles reviewed MRI. They decided pt can be D/C home with steroids and pain medications. Pt advised with plan. Pt agrees. She states oxycodone at home is not doing much for pain. Pt will be given Dilauded and Decadron. She was advised to call Dr. Coles office Saturday morning to confirm appointment at 2pm on 05/20/17. Dx Cervical herniated disc, cervical spinal stenosis, and bilateral cervical radiculopathy. - Diagnoses Provider Diagnoses: Herniated disc, cervical, Cervical spinal stenosis, Cervical radiculopathy - Physician Notifications Discussed Care Of Patient With: Yasmeen - PA of Dr. Coles (Neurosurgery) Time Discussed With Above Provider: 16:36 Instructed by Provider To: Other - Reviewed MRI with Dr. Coles, and they agree that pt may be D/C home with steroids and pain medications. Dr. Coles agrees to see pt in office on Saturday. Discharge - Discharge Plan Condition: Stable Disposition: HOME Prescriptions: Dexamethasone TAB* [Decadron TAB*] 4 mg PO Q8HR #20 tab Dexamethasone TAB* [Decadron TAB*] 4 mg PO Q8HR #20 tab HYDROmorphone TAB* [Dilaudid TAB*] 4 mg PO Q6H PRN #20 tab MDD 4 PRN Reason: Pain HYDROmorphone TAB* [Dilaudid TAB*] 4 mg PO Q6H PRN #20 tab MDD 4 PRN Reason: Pain Patient Education Materials: Cervical Spinal Stenosis (ED), Cervical Radiculopathy (ED) Referrals: Reinaldo Coles MD [Medical Doctor] - 05/20/17 Velma Fuentes MD [Primary Care Provider] - 3 Days Additional Instructions: Call Dr. Coles office on Saturday05/20/17 morning to confirm appointment at his office for Saturday05/20/17 at 2pm. Follow up with primary care physician regarding your elevated Alkaline Phosphatase. RETURN TO THE EMERGENCY DEPARTMENT FOR CHANGING OR WORSENING SYMPTOMS. The documentation as recorded by the Florentin sanchez Nilda accurately reflects the service I personally performed and the decisions made by , Ashley Nolan MD.
== END 2017-05-18 17:28 | disposition home or self-care (01) ==
LOC: ED 12:17
DX: M50.123 Cervical disc disorder at C6-C7 level with radiculopathy (principal); M48.02 Spinal stenosis, cervical region; Z87.891 Personal history of nicotine dependence; Z88.8 Allergy status to other drugs, medicaments and biological substances; Z88.3 Allergy status to other anti-infective agents
CPT/HCPCS: 36415; 72141; 80053; 83735; 84080; 85025; 85610; 85730; 86140; 96374; 96375; 99283; A9270-GY; J1100; J1170; J1885; J3360

== ENCOUNTER 2018-06-24 08:37 | Day surgery (SDC) | payer BC ==
--- NOTE | 2018-06-19 13:44 | HP ---
PREOPERATIVE HISTORY AND PHYSICAL: DATE OF ADMISSION/SURGERY: 06/24/18 DATE OF OFFICE VISIT/ENCOUNTER: 06/18/18 ATTENDING SURGEON: Nallely Byrne MD * (DICTATED BY CARLEE MORA) PROCEDURE: Trigger finger release, right ring finger. HISTORY OF PRESENT ILLNESS: This is a 62-year-old female who complains of locking and catching of her right ring finger ongoing for 4 to 5 months. She does not recall any specific injury. She has most trouble at night when her finger will actually lock and she has to release it using her other hand; this is quite painful. She has been kamila taping her finger, which helps a little bit but the triggering persists. She denies any associated numbness or tingling. She is interested in pursuing surgical intervention for this problem. Her primary care physician is Dr. Fuentes and she was prescribed tramadol for chronic orthopedic pain. PAST MEDICAL HISTORY: 1. Allergic rhinitis. 2. Hypertension. 3. Hypercholesterolemia. 4. Chronic pain related to orthopedic issues including cervical spine fusion, ankle fusion, and right total knee arthroplasty. PAST SURGICAL HISTORY: 1. C5-C7 fusion in 2017. 2. Left ankle fusion. 3. Right total knee arthroplasty. 4. Cholecystectomy. CURRENT MEDICATIONS: 1. Aspirin 81 mg daily. 2. Atorvastatin calcium 10 mg daily. 3. Ibuprofen 800 mg 3 times a day p.r.n. 4. Lansoprazole 30 mg daily. 5. Lyrica 25 mg b.i.d. 6. Qnasl 80 mcg/act 2 inhalations each nostril once daily. 7. Tekturna HCT 150/25 mg daily. 8. Tramadol 50 mg 1 to 2 tabs q.4 to 6 hours p.r.n. pain. 9. Vitamin C 500 mg daily. 10. Vitamin D3 high potency 1000 units 2 daily. 11. Zolpidem tartrate ER 6.25 mg daily. ALLERGIES: COBALT, ERYTHROMYCIN, reaction unknown. FAMILY MEDICAL HISTORY: Heart disease. 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 She is a former smoker, she quit in 1997. Prior to that, she smoked a pack per day for 20 years. She denies recreational drug use. She drinks alcohol on occasion. REVIEW OF SYSTEMS: Negative for general, cephalic, cardiovascular, GI, . Musculoskeletal: Positive for current complaint along with chronic pain from other orthopedic surgeries. Negative integumentary, endocrine, neurologic, and hematologic symptoms. Infectious Disease: Negative for MRSA, hepatitis C, HIV. PHYSICAL EXAMINATION GENERAL: Well-developed, well-nourished 62-year-old female, in no acute distress. VITAL SIGNS: Height 5 feet 4 inches, weight 180 pounds. Pulse rate 81, blood pressure 128/82. HEENT: Normocephalic, atraumatic. Pupils are equal, round, and reactive to light and accommodation. Extraocular movements are intact. Throat is clear. NECK: Supple. No palpable lymph nodes. PULMONARY: Lungs are clear to auscultation bilaterally. No wheezes, rales, or rhonchi. CARDIOVASCULAR: Regular rate and rhythm. S1, S2. No murmurs, rubs, or gallops. No edema. ABDOMEN: Positive bowel sounds, soft, nontender. NEUROLOGICAL: Alert and oriented x3. Cranial nerves II through XII are intact. Sensation is intact to light touch. MUSCULOSKELETAL: On exam of her right hand, she has tenderness to palpation at the A1 kd of her ring finger. When she flexes the finger into a fist, the ring finger locks in a flexed position. She can extend the finger, but has flexion contracture at the PIP joint. Skin is intact. Neurovascular function is intact. IMPRESSION: Right ring finger trigger finger. PLAN: The patient is scheduled to undergo a trigger finger release, right ring finger with Dr. Byrne on 06/24/18. She will return to the office 10 days postop for followup and suture removal. The patient has supply of tramadol at home, which she will plan on using for postoperative pain management. CARLEE MORA [id number]/[facility] #: [id number] ISAC
[~2018-06-24 08:37] MED LIST changes: -Buffered Lidocaine 0.9% SYRIN* 5 ML/SYR SYRINGE INTRADERM ONE; -Buffered Lidocaine 0.9% SYRIN* 5 ML/SYR SYRINGE ONE; +Buffered Lidocaine 1% SYRIN* 1 ML/SYRINGE INTRADERM ONE; -Bupivacaine 0.5% SDV PF* 10-30ML VIAL ONE; -Dexamethasone IV* 4 MG/ML 1 ML (4 MG) IV SLOW PU ONE; -Dexamethasone IV* 4 MG/ML 1 ML (4 MG) ONE; -DiMENhydriNATE IV* 50 MG/ML VIAL IV PUSH PRN; -Famotidine IV* 10 MG/ML 2 ML (20 mg) IV ONE; -Famotidine IV* 10 MG/ML 2 ML (20 mg) ONE; -HYDROmorphone INJ* 1 MG/ML CARPUJECT SYRINGE IV PRN; -HYDROmorphone INJ* 2 MG/ML CARPUJECT SYRINGE ONE; -KETAMINE HCL* 50 MG/ML 10 ML VIAL ONE; -Ketorolac INJ* 30 MG/ML 1 ML VIAL ONE; +Lactated Ringers 1000 ML Bag* 1,000 ML IV SCH; +Lidocaine 1% INJ* 10 MG/ML 30 ML SDV ONE; -Lidocaine 2% PF * 5 ML VIAL ONE; -Midazolam* 1 MG/ML 2 ML VIAL (2 MG) ONE; -Naloxone* 0.4 MG/ML 1 ML VIAL IV PRN; -Ondansetron INJ* 2 MG/ML VIAL ONE; -ceFAZolin 2 GM PREMIX (*) 2 GM/50 ML BAG IVPB ONE; -fentaNYL* 50 MCG/ML 2 ML VIAL (100 MCG VIAL) ONE; -nitroGLYCERIN IV VIAL* 5 MG/ML VIAL ONE; -oxyCODONE TAB* 5 MG TAB ONE
[2018-06-24] MEDS ORDERED: Famotidine IV* 10 MG/ML 2 ML (20 mg) ONE (08:54)
[2018-06-24] MEDS ORDERED: Naloxone* 0.4 MG/ML 1 ML VIAL IV PRN (09:26)
[2018-06-24] MEDS ORDERED: Acetaminophen TAB* 325 MG PO PRN (09:26)
[2018-06-24] MEDS ORDERED: DiMENhydriNATE IV* 50 MG/ML VIAL IV PUSH PRN (09:26)
[2018-06-24] MEDS: Famotidine IV* 10 MG/ML 2 ML (20 mg) IV ONE ×2 (09:50→09:51)
[2018-06-24] MEDS ORDERED: Midazolam* 1 MG/ML 5 ML VIAL (5 MG) ONE (09:58)
[2018-06-24] MEDS ORDERED: fentaNYL* 50 MCG/ML 2 ML VIAL (100 MCG VIAL) ONE (09:58)
[2018-06-24] MEDS ORDERED: Ondansetron INJ* 2 MG/ML VIAL ONE (10:02)
[2018-06-24] MEDS ORDERED: DiMENhydriNATE IV* 50 MG/ML VIAL ONE (10:02)
[2018-06-24] MEDS ORDERED: Propofol* 10 MG/ML 20 ML BTL ONE (10:02)
[2018-06-24] MEDS ORDERED: Ketorolac INJ* 30 MG/ML 1 ML VIAL ONE (10:02)
[2018-06-24] MEDS ORDERED: Lidocaine 2% PF * 5 ML VIAL ONE (10:02)
--- NOTE | 2018-06-24 12:44 | OP ---
DATE OF OPERATION: 06/24/18 [facility] DATE OF : 53 SURGEON: Nallely Byrne MD TENSION WORKER: CARLEE Joy ANESTHESIA: Local MAC. PRE-OP DIAGNOSIS: Right ring finger trigger finger. POST-OP DIAGNOSIS: Right ring finger trigger finger. OPERATIVE PROCEDURE: Right ring finger trigger release. INDICATIONS: Rosana is a 62-year-old female, who has triggering and locking of her right ring finger. She presents for trigger finger release. ESTIMATED BLOOD LOSS: Zero. TOURNIQUET TIME: Approximately 10 minutes. DESCRIPTION OF PROCEDURE: The patient was brought to the operating room, was given a sedation anesthetic and a local infiltration of 10 cc of 1% plain lidocaine in the palm of her right hand. The skin of her right hand and forearm was prepped and draped in the usual sterile fashion. The hand and forearm were exsanguinated and the tourniquet elevated to 250 mmHg. A transverse incision was made centered over the A1 kd of the right ring finger. We dissected through the subcutaneous tissue down to the A1 kd. The kd was incised longitudinally and there was abundant tenosynovitis surrounding the tendons. This was debrided. The wound was irrigated and the skin edges were reapproximated with 4-0 nylon suture. The wound was dressed with Xeroform, 4x4, Webril, and an Severino wrap. The patient tolerated the procedure well and was brought to the recovery room in good condition. [id number]/[facility] #: [id number] MTDD
[2018-06-24 13:18] VITALS: BP 99/53
== END 2018-06-24 11:35 | disposition home or self-care (01) ==
LOC: OREAST 08:37
PROVIDERS: ATTEND Orthopaedic Surgery
DX: M65.341 Trigger finger, right ring finger (principal); I10 Essential (primary) hypertension; E78.00 Pure hypercholesterolemia, unspecified; Z87.891 Personal history of nicotine dependence; E78.5 Hyperlipidemia, unspecified
CPT/HCPCS: J1240; J1885; J2250; J2405; J2704; J3010

== ENCOUNTER 2019-03-09 07:30 | Inpatient (IN) | payer BC ==
--- NOTE | 2019-02-26 11:37 | HP ---
HISTORY AND PHYSICAL: DATE OF ADMISSION/SURGERY: 03/09/19 DATE OF OFFICE VISIT: 02/25/19 SURGEON: Fatimah Kang MD * (DICTATED BY CARLEE ALDANA) PROCEDURE: Left total knee arthroplasty. CHIEF COMPLAINT: Left knee pain. HISTORY OF PRESENT ILLNESS: Ms. Gramajo is a 63-year-old female with continued complaints of left knee pain. She has failed conservative treatment and elected to proceed with a left total knee arthroplasty. PAST MEDICAL HISTORY: Hypertension, high cholesterol, and history of elevated platelets. PAST SURGICAL HISTORY: Right knee ACL reconstruction, right total knee arthroplasty, right total knee revision, six arthroscopic scar tissue removals of the right knee, cholecystectomy, left ankle fusion x3, cervical fusion, bilateral carpal tunnel release, trigger finger release of the right hand. CURRENT MEDICATIONS: 1. Lansoprazole 30 mg a day. 2. Atorvastatin calcium 10 mg a day. 3. Ibuprofen 800 mg 3 times a day as needed. 4. Nasal spray Zolpidem 6.25 mg q.h.s. 5. Aspirin 81 mg daily. 6. Vitamin D3. 7. Vitamin C. 8. Tekturna. 9. Lyrica 50 mg 3 times a day. 10. Hydroxyurea 500 mg 1-1/2 tabs a day. 11. Tramadol as needed. 12. Desloratadine 5 mg daily. ALLERGIES: COBALT, CHROMIUM, AND ERYTHROMYCIN. FAMILY HISTORY: Coronary artery disease. SOCIAL HISTORY: She is a 63-year-old female. She lives with her spouse. She does not smoke or use drugs. Uses occasional alcohol. REVIEW OF SYSTEMS: A complete 14-point review of systems was reviewed with the patient. It is positive for history of elevated platelets and low blood pressure with anesthesia. She denies history of DVT, hepatitis, HIV, or kidney disease. PHYSICAL EXAMINATION GENERAL: She is well developed, well nourished, in no acute distress. VITAL SIGNS: She stands 64 inches tall, weighs 180 pounds, blood pressure is 130/79, heart rate 78. HEENT: Normocephalic, atraumatic. NECK: Supple. No palpable lymph nodes. PULMONARY: The lungs are clear to auscultation bilaterally. CARDIO: Regular rate and rhythm. Strong S1, S2. ABDOMEN: Soft, nontender, nondistended. NEUROLOGICAL: She is alert and oriented x3. MUSCULOSKELETAL: Left lower extremity: Skin is intact. There are no open wounds or abrasions. There is some moderate effusion of the left knee joint. There is a 17-degree valgus deformity. There is some tenderness along the medial and lateral joint line. She is unable to dorsiflex or plantar flex secondary to an ankle fusion. She does have 2+ dorsalis pedis pulse and intact sensation. ASSESSMENT AND PLAN: Ms. Gramajo is a 63-year-old female with severe end-stage osteoarthritis of the left knee. She has failed conservative treatment and elected to proceed with a left total knee arthroplasty. The surgery is scheduled for 03/09/[address] Kang discussed the risks and benefits of the surgery at today's visit and all of her questions were answered. She will follow with Dr. Kang 2 weeks after the surgery. CARLEE ALDANA [id number]/[facility] #: [id number] ISAC
[~2019-03-09 07:30] MED LIST changes: +Acetaminophen TAB* 325 MG PO ONE; -Buffered Lidocaine 1% SYRIN* 1 ML/SYRINGE INTRADERM ONE; +Famotidine IV* 10 MG/ML 2 ML (20 mg) IV ONE; -Lidocaine 1% INJ* 10 MG/ML 30 ML SDV ONE; +Tranexamic Acid 1,000 MG in NS 0.9% 50 ML* (outpatient use) IV SCH
--- OUTSIDE RECORDS SUMMARY | 2019-03-09 09:04 | XMS REPORT | Summary of Care ---
:1955 Author Organization [facility] Address [address] [place] [address] Care Team Providers Name Role Phone Velma Villasenor MD Primary Care Provider Reason for Visit Reason Comments Neck Pain Encounter Details Date Type Department Care Team Description 02/25/2019 Office Visit [facility] Felipa, Cervical radiculopathy (Primary Dx); Pain Medicine at Zafar Trinh MD Facet arthropathy, cervical and [facility] [address] [facility] [address] 4[address] [place] [phone] Allergies Active Allergy Reactions Severity Noted Date Comments Bee Venom Hives 02/10/2018 Sulphur 05/27/2017 Seafood Rash Low 06/10/2017 documented as of this encounter (statuses as of 03/07/2019) Medications Medication Sig Dispensed Refills Start End Date Status Date zolpidem (AMBIEN Take 6.25 mg 0 Active CR) 6.25 MG CR by mouth 8 tablet nightly as needed aliskiren Take 150 mg 0 Active (TEKTURNA) 150 MG by mouth tablet daily atorvastatin Take 10 mg by 0 Active (LIPITOR) 10 MG mouth every tablet evening Beclomethasone 2 sprays by 0 Active Dipropionate 80 Nasal route MCG/ACT AERS every morning vitamin C (ASCORBIC Take 500 mg 0 Active ACID) 500 MG tablet by mouth daily Multiple Vitamin Take 1 tablet 0 Active (MULTIVITAMIN) by mouth tablet daily Cholecalciferol Take 2,000 0 Active (VITAMIN D) 2000 Units by units tablet mouth daily aspirin 81 MG Take 1 tablet 0 Active tablet by mouth 8 daily May resume in one week. Beclomethasone by Nasal 0 Active Diprop, Nasal, route (QNASL NA) lansoprazole Take 30 mg by 0 Active (PREVACID) 30 MG mouth daily capsule tramadol (ULTRAM) tramadol 50 0 Active 50 MG tablet mg tablet 8 Diclofenac Sodium Apply 4 g 1 Tube 3 Active (VOLTAREN) 1 % topically 9 GELIndications: Four times Osteoarthritis of daily spine with radiculopathy, cervical region, Facet arthropathy, cervical alprazolam (XANAX) Take one tab 2 tablet 0 Active 0.25 MG tablet by mouth 30 9 minutes prior to the procedure, and another tab just prior to the procedure. Pregabalin 50 MG Take 1 90 capsule 0 Active Oral Capsule capsule by 9 (LYRICA) mouth Three times daily , Max Daily Dose: 150 mg Hydroxyurea 500 MG Take 500 mg 0 Active Oral Capsule by mouth (HYDREA) daily Pregabalin 50 MG Take 1 270 capsule 0 05/26/19 Active Oral Capsule capsule by 9 20 (LYRICA)Indications mouth Three : Facet times daily , arthropathy, Max Daily cervical, Cervical Dose: 150 mg radiculopathy pregabalin (LYRICA) Take 1 270 capsule 0 02/26/20 Discontinued 50 MG capsule capsule by 9 19 (Reorder) mouth Three times daily , Max Daily Dose: 150 mg documented as of this encounter (statuses as of 03/07/2019) Active Problems Problem Noted Date S/P cervical spinal fusion 05/22/2018 Facet arthropathy, cervical 05/22/2018 Bilateral leg pain 08/30/2017 Neck pain 06/04/2017 Right arm weakness 06/04/2017 Right arm numbness 06/04/2017 Osteoarthritis of spine with radiculopathy, cervical region 06/04/2017 documented as of this encounter (statuses as of 03/07/2019) Social History Tobacco Use Types Packs/Day Years Used Date Former Smoker Quit: 1997 Smokeless Tobacco: Never Used Alcohol Use Drinks/Week oz/Week Comments Yes 6 Cans of beer 6.0 occasioanl Sex Assigned at Date Recorded Not on file Job Start Date Occupation Industry Not on file Not on file Not on file Travel History Travel Start Travel End No recent travel history available. documented as of this encounter Last Filed Vital Signs Vital Sign Reading Time Taken Comments Blood Pressure 114/81 02/25/2019 3:25 PM EST Pulse 67 02/25/2019 3:25 PM EST Temperature - - Respiratory Rate - - Oxygen Saturation - - Inhaled Oxygen Concentration - - Weight 81.6 kg (180 lb) 02/25/2019 3:25 PM EST Height 162.6 cm (5' 4") 02/25/2019 3:25 PM EST Body Mass Index 30.9 02/25/2019 3:25 PM EST documented in this encounter Progress Notes Isabella Marin MD - 02/25/2019 3:00 PM EST Reason for visit: Chief Complaint Patient presents with Neck Pain Subjective HPI HPI: Rosana Gramajo is a 63 y.o. year old female who is a patient of the pain clinic here for follow up on 02/25/19. Pt accompanied by spouse. The patient has a significant past medical history of chronic neck pain. At the last visit on 07/23/18, pt saw Susan Velasquez NP for cervical facet arthropathy, planat that time was to increase lyrica 50mg from BID to TID which pt has tolerated well without any adverse effects. Today, pt denies neck pain. Would like refill of lyrica. Rosana has a past medical history of Arthritis, Blood transfusion without reported diagnosis (06/10/2017), Environmental and seasonal allergies, and Hypertension. Rosana has Neck pain; Right arm weakness; Right arm numbness; Osteoarthritis of spine with radiculopathy, cervical region; Bilateral leg pain; S/P cervical spinal fusion; and Facet arthropathy, cervicalon their problem list. Rosana has a past surgical history that includes Ankle Fusion; Replacement total knee; Cholecystectomy; Colonoscopy; Fracture surgery; Hernia repair; Joint replacement; Tonsillectomy; and pr arthrodesis ant interbody min discectomy, cervical below c2 (N/A, 06/17/2017). Her family history is not on file. Rosana reports that she quit smoking about 21 years ago. She has never used smokeless tobacco. She reports current alcohol use of about 6.0 standard drinks of alcohol per week. She reports that she does not use drugs. Rosana has a current medication list which includes the following prescription(s) : hydroxyurea, aliskiren, alprazolam, aspirin, atorvastatin, beclomethasone diprop (nasal), beclomethasone dipropionate, vitamin d, diclofenac sodium, lansoprazole, multivitamin, pregabalin, pregabalin, tramadol, vitamin c, and zolpidem. Current Outpatient Medications on File Prior to Visit Medication Sig Dispense Refill Hydroxyurea 500 MG Oral Capsule (HYDREA) Take 500 mg by mouth daily aliskiren (TEKTURNA) 150 MG tablet Take 150 mg by mouth daily alprazolam (XANAX) 0.25 MG tablet Take one tab by mouth 30 minutes prior to the procedure, and another tab just prior to the procedure. 2 tablet 0 aspirin 81 MG tablet Take 1 tablet by mouth daily May resume in one week. atorvastatin (LIPITOR) 10 MG tablet Take 10 mg by mouth every evening Beclomethasone Diprop, Nasal, (QNASL NA) by Nasal route Beclomethasone Dipropionate 80 MCG/ACT AERS 2 sprays by Nasal route every morning Cholecalciferol (VITAMIN D) 2000 units tablet Take 2,000 Units by mouth daily Diclofenac Sodium (VOLTAREN) 1 % GEL Apply 4 g topically Four times daily 1 Tube 3 lansoprazole (PREVACID) 30 MG capsule Take 30 mg by mouth daily Multiple Vitamin (MULTIVITAMIN) tablet Take 1 tablet by mouth daily pregabalin (LYRICA) 50 MG capsule Take 1 capsule by mouth Three times daily , Max Daily Dose:150 mg 270 capsule 0 Pregabalin 50 MG Oral Capsule (LYRICA) Take 1 capsule by mouth Three times daily , Max Daily Dose: 150 mg 90 capsule 0 tramadol (ULTRAM) 50 MG tablet tramadol 50 mg tablet vitamin C (ASCORBIC ACID) 500 MG tablet Take 500 mg by mouth daily zolpidem (AMBIEN CR) 6.25 MG CR tablet Take 6.25 mg by mouth nightly as needed 0 No current facility-administered medications on file prior to visit. Rosana is allergic to bee venom; cobalt; and seafood. Review of Systems Constitutional: Negative for chills and fever. Respiratory: Negative for cough. Cardiovascular: Negative for chest pain. Gastrointestinal: Negative for nausea and vomiting. Genitourinary: Negative for dysuria. Musculoskeletal: Negative for neck pain. Neurological: Negative for headaches. Psychiatric/Behavioral: Negative for depression and suicidal ideas. Objective Physical Exam Constitutional: Appearance: Normal appearance. HENT: Head: Normocephalic and atraumatic. Neck: Musculoskeletal: No muscular tenderness. Pulmonary: Effort: Pulmonary effort is normal. Abdominal: Palpations: Abdomen is soft. Musculoskeletal: General: No tenderness. Skin: General: Skin is warm and dry. Neurological: Mental Status: She is alert and oriented to person, place, and time. Psychiatric: Mood and Affect: Mood normal. Behavior: Behavior normal. Assessment/Plan 63 y.o. year old female being evaluated at the pain clinic for neck pain. Plan: Medications: c/w lyrica 50mg TID, will send script for 90 days, Category D. Procedures: none planned currently. Follow up visit: RTC in 3 months Instructions/Education: Side effects of medications were discussed with the patient and she agreed to proceed. Isabella Marin M.D. PGY-3 Physical Medicine & Rehabilitation Seen with Dr. Leo I saw and evaluated the patient. Discussed with the resident and agree with residents findings as documented in the resident's note. documented in this encounter Plan of Treatment Date Type Specialty Care Team Description 05/28/2019 Office Visit Pain Medicine Susan Velasquez, RADAR REPAIRER [address] [place] [address] Name Type Priority Associated Diagnoses Order Schedule Urine Drug Toxicology Lab Routine Facet arthropathy, cervical Ordered: 02/25/2019 ([employer]) Cervical radiculopathy Health Maintenance Due Date Last Done Comments Hepatitis C Screening (B. 1955 [id number]) MMR Vaccines (1 of 1 - 12/18/1956 Standard series) Varicella Vaccines (1 of 2 - [birth year]18/1956 2-dose childhood series) HIV Screening 12/18/1967 Cervical Cancer Screening 5 12/18/1975 years Breast Cancer Screening 2 2004 years Colon Cancer Screening 10 yrs 2004 Zoster Vaccines (1 of 2) 2004 Influenza Vaccine 12/23/2018 DTaP,Tdap,and Td Vaccines (3 06/11/2019 12/11/2018, - Td) 05/19/2018 Pneumococcal Vaccine: 65+ 12/18/2019 Years (1 of 2 - PCV13) HIB Vaccines Aged Out No longer eligible based on patient's age to complete this topic Hepatitis A Vaccines Aged Out No longer eligible based on patient's age to complete this topic Hepatitis B Vaccines Aged Out No longer eligible based on patient's age to complete this topic IPV Vaccines Aged Out No longer eligible based on patient's age to complete this topic Pneumococcal Vaccine: Aged Out No longer eligible based Pediatrics (0 to 5 Years) and on patient's age to At-Risk Patients (6 to 64 complete this topic Years) documented as of this encounter Implants Implanted Type Area Millinery Blocker Device Shelf Model / Identifier Expiration Serial / Lot Date Macey michaelc - [id number] Right: [employer] 08/14/2018 [id number] / Implanted: Qty: 1 on 06/17/2017 by Derek Curtis MD at [address] Spine [id number] / Cervical [id number] Peek Anatomic [id number] - [id number] N/A: Spine [employer] 05/21/2025 [id number] / Implanted: Qty: 1 on 06/17/2017 by Derek Curtis MD at [address] Cervical / [id number] Peek Anatomic [id number] - [id number] N/A: Spine [employer] 12/12/2023 [id number] / Implanted: Qty: 1 on 06/17/2017 by Derek Curtis MD at [address] Cervical / [id number] Plate Translational [id number] - [id number] N/A: Spine [employer] [id number] / Implanted: Qty: 1 on 06/17/2017 by Derek Curtis MD at OR [facility] Cervical / Screw Fixed [id number] - [id number] N/A: Spine [employer] [id number] / Implanted: Qty: 2 on 06/17/2017 by Derek Curtis MD at [address] Cervical / Screw Variable [id number] - [id number] N/A: Spine [employer] [id number] / Implanted: Qty: 4 on 06/17/2017 by Derek Curtis MD at OR 5E Cervical / documented as of this encounter Results Not on filedocumented in this encounter Visit Diagnoses Diagnosis Cervical radiculopathy - Primary Brachial neuritis or radiculitis nos Facet arthropathy, cervical Cervical spondylosis without myelopathy documented in this encounter
--- OUTSIDE RECORDS SUMMARY | 2019-03-09 09:04 | XMS REPORT | Continuity of Care Document ---
:1955 External Reference #:[id number] Author Name Fatimah Kang M.D. (transmitted by agent of provider Thania Huff) Address [address] [place] [address] Care Team Providers Name Role Phone Velma Villasenor MD - Family Medicine Care Team Information Community Living [facility] - Care Team Information Community Living Coach [phone] Prosthetic/Orthotic Supplier Problems Active Problems Provider Date Cough Genevieve Ch MD Onset: 07/11/2016 Difficulty breathing Genevieve Ch MD Onset: 07/11/2016 Essential hypertension Genevieve Ch MD Onset: 07/11/2016 Allergic rhinitis Genevieve Ch MD Onset: 07/11/2016 Obstructive sleep apnea syndrome Genevieve Ch MD Onset: 08/14/2016 Closed fracture of patella Robby Shultz MD Onset: 02/25/2018 Closed fracture of upper end of tibia Robby Shultz MD Onset: 10/10/2018 Social History Type Date Description Comments Sex Unknown Tobacco Use Start: Unknown End: Former Cigarette Smoker Unknown ETOH Use Drinks 5 Alcoholic Beverages Per Week Recreational Drug Use Never Used Drugs Tobacco Use Start: Unknown End: Patient is a former quit in 1997, Unknown smoker smoked for 20yrs 1PPD Smoking Status Reviewed: 02/25/19 Patient is a former quit in 1997, smoker smoked for 20yrs 1PPD Exercise Type/Frequency Exercises sporadically Allergies, Adverse Reactions, Alerts Active Allergies Reaction Severity Comments Date Ipava 09/24/2013 Erythromycin Severe Diarreah 08/14/2016 Inactive Allergies NKDA 06/25/2013 Medications Active Medications SIG Qnty Indications Ordering Date Provider Zaire Disp #1 Dayne Rodas, 03/28/2017 Misc M.D. Lansoprazole daily Unknown 30mg Atorvastatin Calcium 1 by mouth every day Unknown 10mg Tablets Ibuprofen by mouth three times Unknown 800mg Tablets a day as needed Qnasl 2 inhalations in Unknown 80mcg/Act Aerosol each nostril once daily Zolpidem Tartrate ER take one tablet by Unknown mouth at night 6.25mg Tablets ER Aspirin 1 by mouth every day Unknown 81mg Chewtabs Vitamin D3 High 2 by mouth every day Unknown Potency 1000Unit Capsules Vitamin C 1 by mouth every day Unknown 500mg Capsules Tekturna HCT 1 tab daily Unknown 150-25mg Tablets Lyrica Take 1 Capsule By Unknown 50mg Capsules Mouth Three Times Daily Hydroxyurea 1 by mouth every Unknown 500mg other day, 2 on Capsules oppsosite days History Medications Cyclobenzaprine HCL take 1 tab up 3 30tabs S82.142A Robby Shultz, 2018 - 10mg times a day as 01/05/2019 Tablets needed for radiating pain Oxycodone-Acetaminophe 1 tabs by mouth 10tabs Robby Shultz, 10/07/2018 - n every 12 hours 11/01/2018 5-325mg Tablets as needed for pain Medications Administered in Office Medication SIG Qnty Indications Ordering Provider Date Depomedrol 40MG CARLEE Coleman 01/05/2019 Injection Immunizations Description No Information Available Vital Signs Date Vital Result Comment 02/25/2019 8:10am Height 64 inches 5'4" Weight 204.00 lb Heart Rate 78 /min BP Systolic 130 mmHg BP Diastolic 79 mmHg Body Temperature 97.8 F Pain Level 0 BMI (Body Mass Index) 35.0 kg/m2 02/09/2019 11:09am Height 64 inches 5'4" Weight 180.00 lb Heart Rate 64 /min BP Systolic 148 mmHg BP Diastolic 84 mmHg Respiratory Rate 16 /min Pain Level 0 BMI (Body Mass Index) 30.9 kg/m2 Results Test Acquired Date Facility Test Result H/L Range Note Urinalysis Profile 02/23/2019 [facility] Urine Color Yellow [address] [place], [place] [id number] [phone] Urine Appearance Clear Urine Specific [place] 1.016 Normal 1.010-1.030 Urine pH 6.0 Normal 5-9 Urine Urobilinogen Negative Negative Urine Ketones Negative Negative Urine Protein Negative Negative Urine Leukocytes Negative Negative Urine Blood Negative Negative * * Abnormal Negative 1 Urine Nitrite Negative Negative Urine Bilirubin Negative Negative Urine Glucose Negative Negative Comp Metabolic 02/23/2019 [facility] Sodium 141 mmol/L Normal 135-[address] [place] [address] [phone] Potassium 3.6 mmol/L Normal 3.5-5.0 Chloride 110 mmol/L Normal 101-111 Co2 Carbon Dioxide 25 mmol/L Normal 22-32 Anion Gap 6 mmol/L Normal 2-11 Glucose 98 mg/dL Normal 70-100 Blood Urea Nitrogen 17 mg/dL Normal 6-24 Creatinine 0.91 mg/dL Normal 0.51-0.95 BUN/Creatinine Ratio 18.7 Normal 8-20 Calcium 9.7 mg/dL Normal 8.6-10.3 Total Protein 6.7 g/dL Normal 6.4-8.9 Albumin 4.3 g/dL Normal 3.2-5.2 Globulin 2.4 g/dL Normal 2-4 Albumin/Globulin Ratio 1.8 Normal 1-3 Total Bilirubin 0.30 mg/dL Normal 0.2-1.0 Alkaline Phosphatase 105 U/L High 34-104 Alt 18 U/L Normal 7-52 Ast 20 U/L Normal 13-39 Egfr Non- 62.2 >60 Egfr 75.3 >60 2 Inr/Protime 02/23/2019 [facility] Inr 0.92 Normal 0.82-1.[address] [place], [place] [address] [phone] Laboratory test 02/23/2019 [facility] Partial 37.1 Normal 26.0 -38.[address] [place] [address] Time PTT [phone] Type & Screen 02/23/2019 [facility] Patient B Positive [address] Blood Type [place], [place] [id number] [phone] Antibody Screen NEGATIVE Urine Culture And 02/23/2019 [facility] Urine Culture SEE RESULT [address] [place] [address] [phone] Laboratory test 01/12/2019 [facility] C Reactive 5.74 mg/L Normal <8.[address] Protein 1 [place] [address] [phone] Erythrocyte Sed Rate 16 mm/Hr Normal 0-29 CBC Auto 01/12/2019 [facility] White Blood 5.9 10^3/uL Normal 3.5-10.[address] [place] [address] [phone] Red Blood Count 4.19 10^6/uL Normal 3.70-4.87 Hemoglobin 13.6 g/dL Normal 12.0-16.0 Hematocrit 41 % Normal 35-47 Mean Corpuscular Volume 97 fL Normal 80-97 Mean Corpuscular Hemoglobin 33 pg High 27-31 Mean Corpuscular HGB Conc 33 g/dL Normal 31-36 Red Cell Distribution Width 18 % High 10-15 Platelet Count 412 10^3/uL Normal 150-450 Mean Platelet Volume 7.7 fL Normal 7.4-10.4 Abs Neutrophils 3.9 10^3/uL Normal 1.5-7.7 Abs Lymphocytes 1.3 10^3/uL Normal 1.0-4.8 Abs Monocytes 0.5 10^3/uL Normal 0-0.8 Abs Eosinophils 0.1 10^3/uL Normal 0-0.6 Abs Basophils 0.0 10^3/uL Normal 0-0.2 Abs Nucleated RBC 0.0 10^3/uL Granulocyte % 66.3 % Lymphocyte % 22.0 % Monocyte % 8.8 % Eosinophil % 2.1 % Basophil % 0.8 % Nucleated Red Blood Cells % 0.1 1 *Ascorbic acid is present which may interfere with detection of blood. 2 Because ethnic data is not always readily [...] 15-29 5 Kidney failure <15 (or dialysis) 3 Standard intensity warfarin therapeutic range: 2.0-3.0 High intensity warfarin therapeutic range: 2.5-3.5 4 SEE RESULT BELOW Name: OVIDIOROSANA R : [address]: Fatimah Kang MD Acct: [id number] Unit: [id number] AGE: 63 Location: [facility] Re02/23/19 SEX: F Status: REG REF SPEC: [id number] CATHY: 02/23/[address] [facility] DR: Fatimah Kang MD REQ: [id number] RECD: 02/23/19 STATUS: COMP _ SOURCE: URINE SPDESC: ORDERED: Urine Culture QUERIES: Urine Source: Clean Catch Procedure Result Reported Site Urine Culture Final 02/24/19- 1414 ML No Growth (<1,000 CFU/mL) * ML - Main Lab . END OF REPORT DEPARTMENT OF PATHOLOGY, [address] [place] [address] Arnel Sheldon M.D. Director [facility] # [id number] Procedures Date Code Description Status 01/05/2019 71324 Inject Tendon Sheath Or Ligament Aponeurosis Eg Plantar Completed Fascia Medical Devices Description No Information Available Encounters Type Date Location Provider Dx Diagnosis Office Visit 02/09/2019 [facility] Nallely Byrne M65.342 Trigger finger, 11:15a at [facility] left ring finger Office Visit 01/21/2019 [facility] Fatimah Kang, M23.8x2 Other internal 10:00a at [facility]. derangements of left knee M17.12 Unilateral primary osteoarthritis, left knee M25.561 Pain in right knee Z96.651 Presence of right artificial knee joint Office Visit 01/06/2019 8:15a [facility] Robby Shultz M25.561 Pain in at [facility] right knee Z96.651 Presence of right artificial knee joint Office Visit 01/05/2019 11:30a [facility] Dennis Lester M65.342 Trigger finger, at [facility] left ring finger Office Visit 11/25/2018 8:30a [facility] Robby S82.142D Displ bicondylar at [facility] [place] fx l tibia, subs for clos fx w routn heal M17.12 Unilateral primary osteoarthritis, left knee Office Visit 11/04/2018 9:00a [place] Shultz, S82.142D Displ bicondylar Orthopedics at MD cuevas l tibia, subs [facility] for clos fx w routn heal M17.12 Unilateral primary osteoarthritis, left knee Office Visit 10/14/2018 8:15a [place] Shultz S82.142D Displ bicondylar Orthopedics at fx l tibia, subs [facility] for clos fx w routn heal Office Visit 10/10/2018 9:30a [place] Shultz, S82.142A Displaced Orthopedics at [facility] [place] [facility] fracture of left tibia, init Office Visit 10/07/2018 11:30a [place] Shultz, M25.562 Pain in left Orthopedics at [facility] M25.462 Effusion, left knee S89.92xA Unspecified injury of left lower leg, initial encounter Assessments Date Code Description Provider 02/25/2019 M25.562 Pain in left knee Fatimah Kang M.D. 02/25/2019 M25.462 Effusion, left knee Fatimah Kang M.D. 02/25/2019 M23.8x2 Other internal derangements of left knee Fatimah Kang M.D. 02/25/2019 M17.12 Unilateral primary osteoarthritis, left Fatimah Kang M.D. knee 02/09/2019 M65.342 Trigger finger, left ring finger Nallely Byrne M.D. 01/23/2019 M25.562 Pain in left knee Fatimah Kang M.D. 01/23/2019 M25.462 Effusion, left knee Fatimah Kang M.D. 01/21/2019 M23.8x2 Other internal derangements of left knee Fatimah Kang M.D. 01/21/2019 M17.12 Unilateral primary osteoarthritis, left Fatimah Kang M.D. knee 01/21/2019 M25.561 Pain in right knee Fatimah Kang M.D. 01/21/2019 Z96.651 Presence of right artificial knee joint Fatimah Kang M.D. 01/06/2019 M25.561 Pain in right knee Robby Shultz MD 01/06/2019 Z96.651 Presence of right artificial knee joint Robby Shultz MD 01/05/2019 M65.342 Trigger finger, left ring finger CARLEE Colemna 11/25/2018 S82.142D Displaced bicondylar fracture of left Robby Shultz MD tibia, subsequent encounter for closed fracture with routine healing 11/25/2018 M17.12 Unilateral primary osteoarthritis, left Robby Shultz MD knee 11/04/2018 S82.142D Displaced bicondylar fracture of left Robby Shultz MD tibia, subsequent encounter for closed fracture with routine healing 11/04/2018 M17.12 Unilateral primary osteoarthritis, left Robby Shultz MD knee 10/14/2018 S82.142D Displaced bicondylar fracture of left Rboby Shultz MD tibia, subsequent encounter for closed fracture with routine healing 10/10/2018 S82.142A Displaced bicondylar fracture of left Robby Shultz MD tibia, initial encount 10/07/2018 M25.562 Pain in left knee Robby Shultz MD 10/07/2018 M25.462 Effusion, left knee Robby Shultz MD 10/07/2018 S89.92xA Unspecified injury of left lower leg, Robby Shultz MD initial encounter Plan of Treatment Future Appointment(s):03/23/2019 1:30 pm - Fatimah Kang M.D. at [facility] at Epjiew9003/09/2019 10:30 am - Umesh Cedillo PA-C at [facility] at Dzfati3303/09/2019 10:30 am - Fatimah Kang M.D. at [facility] at Xpsqtn8902/25/2019 - Fatimah Kang M.D.M25.562 Pain in left kneeFollow up:Follow up: 2 weeks after pauzzzmM07.462 Effusion, left kneeM23.8x2 Other internal derangements of left kneeM17.12 Unilateral primary osteoarthritis, left knee Functional Status Description No Information Available Mental Status Description No Information Available Referrals Description No Information Available
--- OUTSIDE RECORDS SUMMARY | 2019-03-09 09:04 | XMS REPORT | Continuity of Care Document ---
:1955 External Reference #:[id number] Author Name Nallely Byrne M.D. (transmitted by agent of provider Galina Marroquin) Address [address] [facility] 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 Bailer [facility] - Care Team Information System Admin Prosthetic/Orthotic Supplier Problems Active Problems Provider Date [...] smoked for 20yrs 1PPD Smoking Status Reviewed: 02/09/19 Patient is a former quit in 1997, smoker smoked for 20yrs 1PPD Exercise Type/Frequency Exercises sporadically Allergies, Adverse Reactions, Alerts Active Allergies Reaction Severity Comments Date [place] 09/24/2013 Erythromycin Severe Diarreah 08/14/2016 Inactive Allergies NKDA 06/25/2013 Medications Active Medications SIG Qnty Indications Ordering Date Provider Zaire Disp #1 Dayne Rodas, 03/28/2017 Dolly WareD. Lansoprazole daily Unknown 30mg Atorvastatin Calcium 1 [...] Available Vital Signs Date Vital Result Comment 02/09/2019 11:09am Height 64 inches 5'4" Weight 180.00 lb Heart Rate 64 /min BP Systolic 148 mmHg BP Diastolic 84 mmHg Respiratory Rate 16 /min Pain Level 0 BMI (Body Mass Index) 30.9 kg/m2 01/21/2019 10:18am Height 64 inches 5'4" Weight 180.00 lb Heart Rate 70 /min BP Systolic 132 mmHg BP Diastolic 78 mmHg Body Temperature 98.0 F Pain Level 0 BMI (Body Mass Index) 30.9 kg/m2 Results Test Acquired Date Facility Test Result H/L Range Note Laboratory test 01/12/2019 [facility] C Reactive 5.74 mg/L Normal <8.[address] [place] [address] [phone] Erythrocyte Sed Rate 16 mm/Hr Normal 0-29 CBC Auto 01/12/2019 [facility] White Blood 5.9 10^3/uL Normal 3.5-10.[address] [place] [address] [phone] Red Blood Count 4.19 10^6/uL Normal 3.70-4.87 [...] % Nucleated Red Blood Cells % 0.1 Procedures Date Code Description Status 01/05/2019 02264 Inject Tendon Sheath Or Ligament Aponeurosis Eg Plantar Completed Fascia Medical Devices Description No Information Available Encounters Type Date Location Provider Dx Diagnosis Office Visit 01/21/2019 [facility] Fatimah Kang, M23.8x2 Other internal 10:00a at [place] derangements of left knee M17.12 Unilateral primary osteoarthritis, left knee M25.561 Pain in right knee Z96.651 Presence of right artificial knee joint Office Visit 01/06/2019 8:15a [facility] Robby Shultz M25.561 Pain in at [place] right knee Z96.651 Presence of right artificial knee joint Office Visit 01/05/2019 11:30a [facility] Dennis Lester, M65.342 Trigger finger, at [place] left ring finger Office Visit 11/25/2018 8:30a [facility] Robby S82.142D Displ bicondylar at [place] Lexii fx l tibia, subs for clos fx w routn heal M17.12 Unilateral primary osteoarthritis, left knee Office Visit 11/04/2018 9:00a [place] Shultz S82.142D Displ bicondylar Orthopedics at fx l tibia, subs [place] for clos fx w routn heal M17.12 Unilateral primary osteoarthritis, left knee Office Visit 10/14/2018 8:15a [place] Shultz S82.142D Displ bicondylar Orthopedics at fx l tibia, subs [place] for clos fx w routn heal Office Visit 10/10/2018 9:30a [place] Shultz S82.142A Displaced Orthopedics at [facility] [place] fracture of left tibia, init Office Visit 10/07/2018 11:30a [place] Shultz M25.562 Pain in left Orthopedics at knee [place] M25.462 Effusion, left knee S89.92xA Unspecified injury of left lower leg, initial encounter Assessments Date Code Description Provider 02/09/2019 M65.342 Trigger finger, left ring finger [...] M65.342 Trigger finger, left ring finger CARLEE Coleman 11/25/2018 S82.142D Displaced bicondylar fracture of left [...] 10/14/2018 S82.142D Displaced bicondylar fracture of left Robby [...] MD initial encounter Plan of Treatment Future Appointment(s):02/23/2019 2:00 pm - Fatimah Kang M.D. at [facility] at [id number]/09/2019 10:30 am - Fatimah Kang M.D. at [facility] at Mekvmo1002/09/2019 - Nallely Byrne M.D.M65.342 Trigger finger, left ring fingerFollow up:Follow up: make a f/u on the same day as her TKA f/ u she can make the appt at her preop visit Functional Status Description No Information Available Mental Status Description No Information Available Referrals Description No Information Available
--- OUTSIDE RECORDS SUMMARY | 2019-03-09 09:05 | XMS REPORT | Continuity of Care Document ---
:1955 External Reference #:[id number] Author Name Nallely Byrne M.D. 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 [employer] [phone] Nurse Gynecology [facility] - Care Team Information Driver [employer] [phone] Prosthetic/Orthotic Supplier Problems Active Problems Provider Date [...] Alerts Active Allergies Reaction Severity Comments Date [place] 09/24/2013 Erythromycin Severe Diarreah 08/14/2016 Inactive Allergies NKDA 06/25/2013 Medications Active Medications SIG Qnty Indications Ordering Date Provider Zaire Disp #1 Dayne Rodas, 03/28/2017 Dolly Murrell Lansoprazole daily Unknown 30mg Atorvastatin Calcium 1 [...] Result H/L Range Note Laboratory test 01/12/2019 [facility] C Reactive 5.74 mg/L Normal <8.[address] [place] [address] [phone] Erythrocyte Sed Rate 16 mm/Hr Normal 0-29 CBC Auto 01/12/2019 [facility] White Blood 5.9 10^3/uL Normal 3.5-10.[address] Count [place], [place] [id number] [phone] Red Blood Count 4.19 10^6/uL Normal 3.70-4.87 [...] 0.1 Procedures Date Code Description Status 01/05/2019 92296 Inject Tendon Sheath Or Ligament Aponeurosis Eg Plantar Completed Fascia Medical Devices Description No Information Available Encounters Type Date Location Provider Dx Diagnosis Office Visit 01/21/2019 [facility] Fatimah Kang, M23.8x2 Other internal 10:00a at [place] derangements of left knee M17.12 Unilateral primary osteoarthritis, left knee M25.561 Pain in right knee Z96.651 Presence of right artificial knee joint Office Visit 01/06/2019 8:15a [facility] Robby Shultz M25.561 Pain in at [place] right knee Z96.651 Presence of right artificial knee joint Office Visit 01/05/2019 11:30a [facility] Dennis Lester, M65.342 Trigger finger, at [place] left ring finger Office Visit 11/25/2018 8:30a [facility] Robby S82.142D Displ bicondylar at [place] MD Lexii fx l tibia, subs for clos fx w routn heal M17.12 Unilateral primary osteoarthritis, left knee Office Visit 11/04/2018 9:00a [place] Shultz S82.142D Displ bicondylar Orthopedics at fx l tibia, subs [place] for clos fx w routn heal M17.12 Unilateral primary osteoarthritis, left knee Office Visit 10/14/2018 8:15a [place] Shultz S82.142D Displ bicondylar Orthopedics at fx l tibia, subs [place] for clos fx w routn heal Office Visit 10/10/2018 9:30a [place] Shultz S82.142A [facility] [place] [facility] of left [facility], init Office Visit 10/07/2018 11:30a [place] Shultz M25.562 Pain in left Orthopedics at knee [place] M25.462 Effusion, left knee S89.92xA Unspecified injury of left lower leg, initial encounter Assessments Date Code Description Provider 02/09/2019 M65.342 Trigger finger, left ring finger Nallely Byrne M.D. 01/23/2019 M25.562 Pain in left knee Fatimah Kang M.D. 01/23/2019 M25.462 Effusion, left knee Fatimah Kang M.D. 01/21/2019 M23.8x2 Other internal derangements of left knee Fatiamh Kang M.D. 01/21/2019 M17.12 Unilateral primary osteoarthritis, [...] 2:00 pm - Fatimah Kang M.D. at [facility] at [id number]/09/2019 10:30 am - Fatimah Kang M.D. at [facility] at [id number]/09/2019 - Nallely Byrne M.D.M65.342 Trigger finger, left ring fingerFollow up:Follow up: make a f/u on the same day as her TKA f/ u she can make the appt at her preop visit Functional Status Description No Information Available Mental Status Description No Information Available Referrals Description No Information Available
--- OUTSIDE RECORDS SUMMARY | 2019-03-09 09:05 | XMS REPORT | Continuity of Care Document ---
:1955 External Reference #:[id number] Author Name Fatimah Kang M.D. (transmitted by agent of provider Carolina Marie) Address [address] [facility] [place] [address] Care Team Providers Name Role Phone Velma Villasenor MD - Family Medicine Care Team Information Tennis Net Maker Willow Analyst [facility] - Care Team Information Tennis Net Maker Prosthetic/Orthotic Supplier Problems Active Problems Provider Date [...] smoked for 20yrs 1PPD Smoking Status Reviewed: 01/21/19 Patient is a former quit in 1997, smoker smoked for 20yrs 1PPD Exercise Type/Frequency Exercises sporadically Allergies, Adverse Reactions, Alerts Active Allergies Reaction Severity Comments Date [place] 09/24/2013 Erythromycin Severe Diarreah 08/14/2016 Inactive Allergies [...] Available Vital Signs Date Vital Result Comment 01/21/2019 10:18am Height 64 inches 5'4" Weight 180.00 lb Heart Rate 70 /min BP Systolic 132 mmHg BP Diastolic 78 mmHg Body Temperature 98.0 F Pain Level 0 BMI (Body Mass Index) 30.9 kg/m2 01/06/2019 8:10am Height 64 inches 5'4" Weight 180.00 lb Heart Rate 78 /min BP Systolic 138 mmHg BP Diastolic 80 mmHg Body Temperature 98.8 F Pain Level 1 BMI (Body Mass Index) 30.9 kg/m2 Results Test Acquired Date Facility Test Result H/L Range Note Laboratory test 01/12/2019 [facility] C Reactive 5.74 mg/L Normal <8.[address] [place] [address] [phone] Erythrocyte Sed Rate 16 mm/Hr Normal 0-29 CBC Auto 01/12/2019 [facility] White Blood 5.9 10^3/uL Normal 3.5-10.[address] [place] [address] [phone] Red Blood Count 4.19 10^6/uL Normal 3.70-4.87 [...] 0.1 Procedures Date Code Description Status 01/05/2019 21273 Inject Tendon Sheath Or Ligament Aponeurosis Eg Plantar Completed Fascia Medical Devices Description No Information Available Encounters Type Date Location Provider Dx Diagnosis Office Visit 01/06/2019 [facility] Robby Shultz MD M25.561 Pain in right 8:15a at [place] knee Z96.651 Presence of right artificial knee joint Office Visit 01/05/2019 11:30a [facility] Dennis Lester, M65.342 Trigger finger, at [place] left ring finger Office Visit 11/25/2018 8:30a [facility] Robby S82.142D Displ bicondylar at [place] MD Lexii fx l tibia, subs for clos fx w routn heal M17.12 Unilateral primary osteoarthritis, left knee Office Visit 11/04/2018 9:00a [place] Shultz, S82.142D Displ bicondylar Orthopedics at fx l tibia, subs [place] for clos fx w routn heal M17.12 Unilateral primary osteoarthritis, left knee Office Visit 10/14/2018 8:15a [place] Shultz S82.142D Displ bicondylar Orthopedics at fx l tibia, subs [place] for clos fx w routn heal Office Visit 10/10/2018 9:30a [place] Shultz S82.142A [facility], init Office Visit 10/07/2018 11:30a [place] Shultz M25.562 Pain in left Orthopedics at knee [place] M25.462 Effusion, left knee S89.92xA Unspecified injury of left lower leg, initial encounter Assessments Date Code Description Provider 01/06/2019 M25.561 Pain in right knee Robby [...] lower leg, Robby Shultz MD initial encounter 07/31/2018 M65.341 Trigger finger, right ring finger Nallely Byrne M.D. 07/31/2018 Z47.89 Encounter for other orthopedic aftercare Nallely Byrne M.D. Plan of Treatment Future Appointment(s):02/09/2019 11:15 am - Nallely Byrne M.D. at [facility] Functional Status Description No Information Available Mental Status Description No Information Available Referrals Description No Information Available
[2019-03-09] MEDS ORDERED: ceFAZolin 2 GM in NS PREMIX(*) 2 GM/100 ML BAG IVPB ONE (09:38)
[2019-03-09] MEDS ORDERED: Buffered Lidocaine 1% SYRIN* 1 ML/SYRINGE INTRADERM ONE (09:38)
[2019-03-09] MEDS ORDERED: Famotidine IV* 10 MG/ML 2 ML (20 mg) ONE (09:38)
[2019-03-09] MEDS ORDERED: Acetaminophen TAB* 325 MG ONE (10:00)
[2019-03-09] MEDS: Buffered Lidocaine 1% SYRIN* 1 ML/SYRINGE INTRADERM ONE ×2 (10:59→18:05)
[2019-03-09] MEDS ORDERED: Midazolam* 1 MG/ML 2 ML VIAL (2 MG) ONE (12:22)
[2019-03-09] MEDS ORDERED: fentaNYL* 50 MCG/ML 2 ML VIAL (100 MCG VIAL) ONE ×5 (12:22→16:24)
[2019-03-09] MEDS ORDERED: ROPIVACAINE 5 MG/ML 30 ML BTL (0.5%) ONE (13:05)
[2019-03-09] MEDS ORDERED: Succinylcholine* 20 MG/ML 10 ML VIAL ONE (13:13)
[2019-03-09] MEDS ORDERED: Ketorolac INJ* 30 MG/ML 1 ML VIAL ONE (13:13)
[2019-03-09] MEDS ORDERED: Cisatracurium* 2 MG/ML MDV 5 ML ONE (13:13)
[2019-03-09] MEDS ORDERED: Ondansetron INJ* 2 MG/ML VIAL ONE (13:13)
[2019-03-09] MEDS ORDERED: Propofol* 10 MG/ML 20 ML BTL ONE (13:13)
[2019-03-09] MEDS ORDERED: Dexamethasone IV* 4 MG/ML 1 ML (4 MG) ONE (13:13)
[2019-03-09] MEDS ORDERED: Dexmedetomidine* 200 MCG/2 ML 2 ML VIAL ONE (13:31)
[2019-03-09] MEDS ORDERED: HYDROmorphone INJ1* 1 MG/ML SYRINGE ONE ×2 (13:59→16:25)
[2019-03-09] MEDS ORDERED: EPHEDrine (Pressors)* 50 MG/ML VIAL ONE (15:18)
[2019-03-09] MEDS ORDERED: oxyCODONE/Acetamin 5/325 MG* TAB PO PRN (15:40)
[2019-03-09] MEDS ORDERED: Magnesium Hydroxide LIQ* 30 ML UDC PO PRN (15:40)
[2019-03-09] MEDS ORDERED: Acetaminophen TAB* 325 MG PO PRN (15:40)
[2019-03-09] MEDS ORDERED: diPHENhydraMINE PO* 25 MG PO PRN (15:40)
[2019-03-09] MEDS ORDERED: Morphine INJ* 2 MG/ML 1 ML SYRINGE (TWO MG - NEW SYRINGE VERSION) IV PRN (15:40)
[2019-03-09] MEDS ORDERED: Ondansetron ODT TAB* 4 MG PO PRN (15:40)
[2019-03-09] MEDS ORDERED: diPHENhydraMINE IV* 50 MG/ML 1 ml VIAL (BENADRYL) IV PRN ×2 (15:40→15:46)
[2019-03-09] MEDS ORDERED: Ondansetron INJ* 2 MG/ML VIAL IV PRN ×2 (15:40→15:46)
[2019-03-09] MEDS: fentaNYL* 50 MCG/ML 2 ML VIAL (100 MCG VIAL) IV PRN ×5 (15:45→16:33)
[2019-03-09] MEDS ORDERED: Scopolamine 1.5 mg* PATCH TRANSDERM PRN (15:46)
[2019-03-09] MEDS ORDERED: DiMENhydriNATE IV* 50 MG/ML VIAL IV PUSH PRN (15:46)
[2019-03-09] MEDS ORDERED: Acetaminophen IV 1GM/100ML * 1,000 MG/100 ML VIAL IVPB ONE (15:46)
[2019-03-09] MEDS ORDERED: HYDROcodone/ACETAMIN 5-325 MG* 1 TAB PO PRN ×2 (15:46)
[2019-03-09] MEDS ORDERED: Naloxone* 0.4 MG/ML 1 ML VIAL IV PRN (15:46)
--- NOTE | 2019-03-09 15:49 | OP ---
Operative Report - Blank - Operative Report Date of Operation: 03/09/19 Note: MAC NOLAN 1955 Date of Surgery: 03/09/19 Fatimah Kang MD Php Architect: Elise BEJARANO did help throughout the procedure with preparation of the knee, wound retraction, manipulation of the knee, and wound closure. Anesthesiologist: Elise Aguilar MD Anesthesia Type: General Preoperative Diagnosis: Left severe degenerative osteoarthritis of the knee with valgus deformity Postoperative Diagnosis: As above Procedure Performed: Left Total Knee Arthroplasty Tourniquet time: 50 minutes Complications: None Specimen: Bone and cartilage from the left knee joint sent to pathology. Hardware Used: Cemented Dominguez and Nephew total knee hardware was used - For the femur a size 5 narrow oxinium left legion posterior stabilized femoral component , for the tibia a size 3 left austin II tibial baseplate, for the insert a size 9mm 3-4 posterior stabilized articular polyethylene insert, and for the patella a size 32 3-peg all poly patella. Brief History/Indication: MAC NOLAN was known in clinic and had a history of severe left knee pain and swelling. She failed conservative treatment with anti- inflammatories, pain pills, intra-articular injections and physical therapy. She elected to undergo left total knee arthroplasty due to continued pain and decreased quality of life. Radiographs showed severe end stage osteoarthritis of the knee with bone on bone contact. Informed consent was obtained from the patient. She understood the risks of surgery included but were not limited to: bleeding, infection, damage to nearby structures, intraoperative fracture, nerve palsy, failure of the hardware, early loosening, knee stiffness or loss of motion, anesthesia complications, stroke, heart attack, blood clot and . She wished to proceed. Intra-Operative Findings: Intraoperatively the patient was noted to have severe loss of cartilage in all 3 compartments of the knee. Description of the Procedure: MAC NOLAN was identified in the preanesthesia unit. Her left knee was marked as the correct operative side. Informed consent was signed and placed in the chart. The patient was taken to the operating room and placed under anesthesia without complication. A garcia catheter was placed. A tourniquet was placed on the left thigh. The left lower extremity was prepped and draped in the usual sterile fashion. Preoperative time-out was made to correctly identify the patient, side and site. Appropriate intraoperative antibiotics were given within one hour of incision. Tourniquet was inflated. A midline incision was made and carried sharply down to the extensor mechanism. A new 10 blade was used to make a standard medial parapatellar arthrotomy. The patella was subluxed laterally. Electrocautery was used to dissect soft tissue off the superomedial tibia to the midsagittal plane. The knee was flexed up. The anterior horn of the lateral meniscus and the ACL were sharply incised. A drill was used to enter the distal femur. The intramedullary distal femoral cutting guide was pinned on the distal femur. The oscillating saw was used to make the distal femoral cut. The external rotation guide was pinned on the distal femur and the distal femur was sized to a size 5. The size 5 multi-cutting jig was pinned on the distal femur. The oscillating saw was used to make the appropriate 4 chamfer cuts. Next the PCL was completely released. The extramedullary tibial cutting guide was pinned on the proximal tibia and the oscillating saw was used to make the proximal tibial cut perpendicular to the mechanical axis of the tibia. The bone was carefully removed. The knee was brought out into full extension. The spacer block was placed and had excellent fit with the knee in full extension. The medial and lateral ligaments were well balanced. The flexion and extension gaps were well balanced. The knee was flexed up. Lamina director drug safety was placed both medially and laterally. Any remaining meniscus was removed with electrocautery. Curved osteotome was used to remove any posterior osteophytes. The tibial tray and drop nolberto were placed and confirmed a satisfactory tibial cut. The size 5 left narrow femoral trial was impacted onto the distal femur. This trial had excellent fit and stability. The box for the posterior stabilized implant was prepared using a box cut osteotome and a reamer. Next a tibial tray trial and 9 mm insert trial was placed. The knee was taken through a range of motion and had full extension to 130 degrees of flexion. Patellofemoral tracking was satisfactory. The patella was inverted and sized to a size 32. Three peg holes were drilled through the size 32 drill guide. The trial patella was placed and the knee was taken through a range of motion. There was satisfactory patellofemoral tracking. All trials were removed. The tibia was subluxed anteriorly and sized to a size 3. The proximal tibial was prepared with a size 3 keel punch. All bony cut surfaces were irrigated with sterile saline and dried. Final implants were cemented into place starting with the tibia, followed by the femur, and last the patella. A 9 mm insert trial was placed and the knee was brought into full extension. Tourniquet was turned down and the knee was copiously irrigated with sterile saline. Electrocautery was used to obtain meticulous hemostasis. Once the cement had fully cured, the insert trial was removed. Any excess cement was removed from around the hardware and capsule. Final insert chosen was a 9 mm posterior stabilized Austin II articular insert size 3-4. Stability of the insert was checked and noted to be stable. The extensor mechanism was closed using number 1 vicryls. The rest of the incision was closed in a layered fashion using 0 and 2-0 vicryls. The skin was closed using 3-0 nylon suture. Sterile xeroform, 4x4s and webril were used to cover the incision. Severino wrap and cold pack were used to cover the dressings. The patients anesthesia was reversed without difficulty. She was taken to the PACU in stable condition. Intended weight-bearing will be as tolerated.
[2019-03-09] MEDS: Lactated Ringers 1000 ML Bag* 1,000 ML IV SCH ×2 (16:18→18:01)
[2019-03-09] MEDS: HYDROmorphone INJ1* 1 MG/ML SYRINGE IV PRN ×2 (16:34→16:49)
[2019-03-09] MEDS: Atorvastatin* 10 MG TAB PO SCH (18:19)
[2019-03-09] MEDS: Aspirin 81 mg CHEW TAB* 81 MG TAB.CHEW PO SCH (18:19)
[2019-03-09] MEDS: oxyCODONE/Acetamin 5/325 MG* TAB PO PRN ×2 (18:19→22:34)
--- NOTE | 2019-03-09 18:34 | CONS ---
CONSULTATION REPORT: DATE OF CONSULT: 03/09/19 REQUESTING PROVIDER: Dr. Fatimah Kang. REASON FOR CONSULT: Co-management of chronic medical conditions. HISTORY OF PRESENT ILLNESS: Rosana Gramajo is a 63-year-old white female with past medical history significant for hypertension, essential thrombocytosis, hyperlipidemia and GERD, who presented for elective left total knee arthroplasty with Dr. Kang today. The patient failed outpatient conservative treatment of her left knee osteoarthritis and elected to proceed with her surgery today. The patient was evaluated at bedside in the postanesthesia care unit shortly after surgery. For this reason, the patient is still minimally sedated, but is able to answer questions and her does provide some history as well. She complains of left knee pain and otherwise has no complaints. She denies chest pain, difficulty breathing, abdominal pain, nausea , vomiting. PAST MEDICAL HISTORY: 1. Hypertension. 2. Hyperlipidemia. 3. GERD. 4. Essential thrombocytosis. PAST SURGICAL HISTORY: Right knee ACL reconstruction, right TKA, right total knee revision, 6 arthroscopic scar tissue removals of the right knee, cholecystectomy, left ankle fusion x3, cervical fusion, bilateral carpal tunnel release, trigger finger release on the right hand. HOME MEDICATIONS: 1. Hydroxyurea 500 mg on even days and 1000 mg on odd days. 2. Vitamin D3 1000 units p.o. q.a.m. 3. Lipitor 10 mg p.o. daily. 4. Vitamin C tab 500 mg p.o. b.i.d. 5. Aliskiren 150 mg/hydrochlorothiazide 25 mg 1 tab p.o. daily. 6. Tramadol 50 mg p.o. t.i.d. p.r.n. pain. 7. Ambien 6.25 mg p.o. at bedtime p.r.n. insomnia. 8. Multivitamin 1 tab p.o. daily. 9. Lansoprazole 30 mg p.o. q.a.m. 10. Ibuprofen 800 mg p.o. q.8 hours p.r.n. pain. 11. Qnasl 2 sprays both nares q.a.m. 12. Lyrica 50 mg p.o. t.i.d. 13. Desloratadine 5 mg p.o. daily. 14. Aspirin 81 mg p.o. daily. ALLERGIES: 1. Severe diarrhea to ERYTHROMYCIN. 2. Difficulty breathing to BEE VENOM. 3. Allergy to COBALT (related to prior total knee replacement). 4. Unknown reaction to CELEBREX. 5. Diarrhea to AUGMENTIN. 6. Unknown reaction to SEA FOOD. FAMILY HISTORY: Positive family history for coronary artery disease. Both of her parents are . SOCIAL HISTORY: The patient lives with her . She does not smoke. She drinks 1 glass of beer per week. She denies illicit drug use. PHYSICAL EXAM: General: An obese, white female, lying in PACU bed, appearing comfortable, in no acute distress, minimally sedated in the setting of recent general anesthesia. Eyes: PERRL. Sclerae anicteric. ENT: Mucous membranes moist. Lungs: Clear to auscultation throughout. Cardio: Regular rate and rhythm without murmurs, rubs, or gallops. Abdomen: Soft, nontender, nondistended. Extremities: No clubbing, cyanosis, or edema. Left knee is in brace. Neuro: The patient is somnolent, but awakes easily to voice, is oriented x3. No focal deficits. Able to move all extremities. DIAGNOSTIC STUDIES/LAB DATA: Recent platelet count on 03/03/19 is 390. ASSESSMENT AND PLAN: Rosana Gramajo is a 63-year-old white female with past medical history significant for hypertension, hyperlipidemia, gastroesophageal reflux disease, and essential thrombocytosis. Hospital Medicine has been consulted for co- management of chronic medical conditions while she is in the hospital. 1. Hypertension. Continue the patient's home hydrochlorothiazide and aliskiren. We will monitor her blood pressure. 2. Hyperlipidemia. Continue home statin. The patient takes aspirin as primary prevention and I recommend continue this as well. 3. Gastroesophageal reflux disease. Continue the patient's home PPI. 4. Essential thrombocytosis. The patient revealed to me that she takes 500 mg and 1000 mg every other day and it appears that she takes 500 mg on even days as noted and I have updated her home medication list and the hydroxyurea will be continued while she is in the hospital. Her platelet count was within normal limits earlier this month and I agree with following that while she is in the hospital. 5. Post-operative state. Management per orthopedic team. I recommend against the use of her home p.r.n. zolpidem while she is in the hospital due to concurrent use of opiates and the risk of respiratory decline. 6. DVT prophylaxis: Per primary orthopedic team. 7. Disposition: Per primary orthopedic team. Thank you for allowing us to participate in the care of this patient. We will follow during this admission. CARLEE SANCHEZ [id number]/[facility] #: [id number] ISAC
[2019-03-09] MEDS: ceFAZolin 1 GM ADVAN(*) 1 GM in NS 0.9% 50 ML* 50 ML IVPB SCH (18:51)
[2019-03-09] MEDS ORDERED: HydroxyUREA CAP* 500 MG CAP PO SCH (20:00)
[2019-03-09] MEDS: Cyclobenzaprine TAB* 10 MG PO PRN (20:07)
[2019-03-09] MEDS: oxyCODONE TAB* 5 MG TAB PO PRN (20:21)
[2019-03-09] MEDS: Pregabalin CAP(*) 50 MG PO SCH (21:23)
[2019-03-09] MEDS: Ascorbic Acid TAB* 500 MG PO SCH (21:23)
[2019-03-09] MEDS: Magnesium Hydroxide LIQ* 30 ML UDC PO SCH ×2 (21:24→21:26)
[2019-03-09] MEDS: Docusate CAP* 100 MG PO SCH (21:24)
[2019-03-10] MEDS: oxyCODONE TAB* 5 MG TAB PO PRN ×5 (00:25→20:27)
[2019-03-10] MEDS: oxyCODONE/Acetamin 5/325 MG* TAB PO PRN ×5 (02:36→23:28)
[2019-03-10] MEDS: ceFAZolin 1 GM ADVAN(*) 1 GM in NS 0.9% 50 ML* 50 ML IVPB SCH ×2 (02:38→10:48)
[2019-03-10] MEDS: Lactated Ringers 1000 ML Bag* 1,000 ML IV SCH (05:09)
[2019-03-10 05:55] LABS: Hematocrit 32 % (35-47); Hemoglobin 10.7 g/dL (12.0-16.0); Mean Platelet Volume 7.8 fL (7.4-10.4); Platelet Count 316 10^3/uL (150-450)
[2019-03-10 06:49] LABS: Calcium 8.1 mg/dL (8.6-10.3); Potassium 4.3 mmol/L (3.5-5.0)
[2019-03-10 06:55] LABS: BUN/Creatinine Ratio 17.5 (8-20); EGFR African American 115.1 (>60); EGFR Non-African American 95.1 (>60)
[2019-03-10] MEDS: Docusate CAP* 100 MG PO SCH ×2 (08:10→20:27)
[2019-03-10] MEDS: Pregabalin CAP(*) 50 MG PO SCH ×3 (08:10→20:27)
[2019-03-10] MEDS: Cyclobenzaprine TAB* 10 MG PO PRN ×2 (08:10→14:53)
[2019-03-10] MEDS: Cetirizine* 10 MG TAB PO SCH (08:11)
[2019-03-10] MEDS: Apixaban* 2.5 MG TAB PO SCH ×2 (08:11→20:27)
[2019-03-10] MEDS: Cholecalciferol TAB* 1000 UNITS PO SCH (08:11)
[2019-03-10] MEDS: Ascorbic Acid TAB* 500 MG PO SCH ×2 (08:11→20:27)
[2019-03-10] MEDS: Hydrochlorothiazide TAB* 25 MG PO SCH (08:11)
[2019-03-10] MEDS: Pantoprazole TAB * 40 MG TAB PO SCH (08:11)
[2019-03-10] MEDS: Vitamin THERAPEUTIC TAB PO SCH (08:11)
[2019-03-10] MEDS: Aliskiren TAB* 150 MG PO SCH (08:12)
[2019-03-10] MEDS: Magnesium Hydroxide LIQ* 30 ML UDC PO SCH ×2 (08:17→20:35)
[2019-03-10] MEDS: HydroxyUREA CAP* 500 MG CAP PO SCH ×2 (08:17→20:33)
--- NOTE | 2019-03-10 08:39 | PN ---
Progress Note - Progress Note Date of Service: 03/10/19 SOAP: Subjective: OOB to chair, pain well controlled, no significant complaints Objective: Vital Signs Temp Pulse Resp BP Pulse Ox 98.8 F 84 16 130/64 100 03/10/19 08:08 03/10/19 08:08 03/10/19 08:10 03/10/19 08:08 03/10/19 08:08 Laboratory Last Values Hgb 10.7 g/dL (12.0-16.0) L 03/10/19 05:36 Hct 32 % (35-47) L 03/10/19 05:36 Plt Count 316 10^3/uL (150-450) 03/10/19 05:36 MPV 7.8 fL (7.4-10.4) 03/10/19 05:36 Sodium 131 mmol/L (135-145) L 03/10/19 05:36 Potassium 4.3 mmol/L (3.5-5.0) 03/10/19 05:36 Chloride 102 mmol/L (101-111) 03/10/19 05:36 Carbon Dioxide 19 mmol/L (22-32) L 03/10/19 05:36 Anion Gap 10 mmol/L (2-11) 03/10/19 05:36 BUN 11 mg/dL (6-24) 03/10/19 05:36 Creatinine 0.63 mg/dL (0.51-0.95) 03/10/19 05:36 Est GFR ( Amer) 115.1 (>60) 03/10/19 05:36 Est GFR (Non-Af Amer) 95.1 (>60) 03/10/19 05:36 BUN/Creatinine Ratio 17.5 (8-20) 03/10/19 05:36 Glucose 109 mg/dL (70-100) H 03/10/19 05:36 Calcium 8.1 mg/dL (8.6-10.3) L 03/10/19 05:36 incision: c/di PE: ankle fused- unable to dorsi flex( known pre-op), able to wiggle toes, 2+ DP pulse and intact sensation Assessment: s/p left TKA; POD#1 Plan: 1) PT/OT- WBAT 2) Abx for 24 hours post-op 3) Eliquis BID for DVT prophylaxis 4) plan home tomorrow
[2019-03-10] MEDS ORDERED: [UNRECOGNIZED DRUG - OTHER] PO SCH (09:00)
[2019-03-10] MEDS ORDERED: ALISKIREN PO SCH (09:00)
[2019-03-10] MEDS ORDERED: HYDROCHLOROTHIAZIDE PO SCH (09:00)
[2019-03-10] MEDS: Atorvastatin* 10 MG TAB PO SCH (17:04)
[2019-03-10] MEDS: Aspirin 81 mg CHEW TAB* 81 MG TAB.CHEW PO SCH (17:04)
[2019-03-10] MEDS: Morphine TAB Extended Release (*) 15 MG TAB.ER PO SCH (19:24)
[2019-03-11] MEDS: oxyCODONE TAB* 5 MG TAB PO PRN ×4 (01:34→13:48)
[2019-03-11] MEDS: oxyCODONE/Acetamin 5/325 MG* TAB PO PRN (03:55)
[2019-03-11 06:20] LABS: Hematocrit 33 % (35-47); Hemoglobin 11.2 g/dL (12.0-16.0); Mean Platelet Volume 7.6 fL (7.4-10.4); Platelet Count 301 10^3/uL (150-450)
[2019-03-11] MEDS: Cholecalciferol TAB* 1000 UNITS PO SCH (09:35)
[2019-03-11] MEDS: Magnesium Hydroxide LIQ* 30 ML UDC PO SCH (09:35)
[2019-03-11] MEDS: Morphine TAB Extended Release (*) 15 MG TAB.ER PO SCH (09:35)
[2019-03-11] MEDS: Docusate CAP* 100 MG PO SCH (09:35)
[2019-03-11] MEDS: Pregabalin CAP(*) 50 MG PO SCH ×2 (09:35→13:48)
[2019-03-11] MEDS: Hydrochlorothiazide TAB* 25 MG PO SCH (09:35)
[2019-03-11] MEDS: Ascorbic Acid TAB* 500 MG PO SCH (09:36)
[2019-03-11] MEDS: Cetirizine* 10 MG TAB PO SCH (09:36)
[2019-03-11] MEDS: Pantoprazole TAB * 40 MG TAB PO SCH (09:36)
[2019-03-11] MEDS: Vitamin THERAPEUTIC TAB PO SCH (09:36)
[2019-03-11] MEDS: Apixaban* 2.5 MG TAB PO SCH (09:36)
[2019-03-11] MEDS: Aliskiren TAB* 150 MG PO SCH (09:39)
--- NOTE | 2019-03-11 09:51 | DS ---
Orthopedic Discharge Summary - Discharge Summary Date of Admission:03/09/19 Date of Discharge: 03/11/19 Date of Surgery: 03/09/19 Attending Orthopedic Provider: Dr Kang Pre-operative Diagnosis: Left knee osteoarthritis Operative Procedure: left total knee replacement Disposition of Patient: home with outpatient PT Condition of Patient: stable History: MAC NOLAN is a 63 year old F with years of increasingly severe left knee pain. Patient has failed conservative management and has elected to undergo a left total knee replacement Hospital Course: MAC was admitted to [facility] on 03/09/19. Patient underwent a left total knee replacement without complication followed by a brief recovery in PACU and transfer to the Short Stay Surgical Unit in stable condition. Our hospitalist service, physical therapy also participated in this patients care. Post-op day 1: patient was alert and in no acute distress. Dressing was clean, dry and intact. Operative extremity dorsiflexion and plantarflexion intact, sensation intact to light touch distally, DP2+. Post- op day two: dressing was changed, incision was clean, dry and intact. Patient was deemed to be medically and orthopedically stable for discharge. Physical therapy goals were met. Home Medications Medication Instructions Recorded Confirmed Type Atorvastatin* [Lipitor 10 MG*] 10 mg PO QPM 03/29/17 03/09/19 History Aliskiren/Hydrochlorothiazide 1 tab PO QAM 05/18/17 03/09/19 History [Tekturna Hct 150-25 mg Tablet] Lansoprazole SOLUTAB* [Prevacid 30 mg PO QAM 05/18/17 03/09/19 History Solutab*] Zolpidem CR (NF) [Ambien CR (NF)] 6.25 mg PO BEDTIME PRN 05/18/17 03/09/19 History Ascorbic Acid TAB* [Vitamin C 500 mg PO BID 10/25/17 03/09/19 History TAB*] Aspirin 81 mg CHEW TAB* 81 mg PO QPM 10/25/17 03/06/19 History Cholecalciferol (Vitamin D3) 1,000 unit PO QAM 10/25/17 03/09/19 History [Vitamin D3] Multivitamin [Multiple Vitamins] 1 tab PO QAM 06/17/18 03/09/19 History Pregabalin CAP(*) [Lyrica CAP(*)] 50 mg PO TID 06/17/18 03/09/19 History Qnasl 2 spray BOTH NARES QAM 06/17/18 03/09/19 History Desloratidine (NF) [Clarinex (NF)] 5 mg PO QAM 02/23/19 03/09/19 History Hydroxyurea 500 mg PO MOWEFR 02/23/19 03/09/19 History Hydroxyurea [Siklos] 1,000 mg PO SUTUTHSA 03/09/19 03/09/19 History Acetaminophen TAB* [Tylenol TAB*] 650 mg PO Q8HR PRN tab 03/11/19 Rx Apixaban* [Eliquis*] 2.5 mg PO BID #60 tab 03/11/19 Rx Docusate CAP* [Colace Cap*] 100 mg PO BID PRN #90 cap 03/11/19 Rx Morphine TAB Extended Rel(*) [Ms 15 mg PO 0900,2100 #6 tab.er MDD 2 03/11/19 Rx Contin(*)] oxyCODONE/Acetamin 5/325 MG* 1 tab PO Q4H PRN tab MDD 10 03/11/19 Rx [Percocet 5/325 TAB*] oxyCODONE/Acetamin 5/325 MG* 2 tab PO Q4H PRN #70 tab MDD 10 03/11/19 Rx [Percocet 5/325 TAB*] Discharge Instructions following Orthopedic Surgery: Activity: * Weight Bearing as tolerated * Continue physical therapy and occupational therapy exercises as shown * Outpatient PT Wound care: * OK to shower on post-op day 3, no bathing, swimming, or submerging wound. * Use gentle soap, pat dry. Cover with gauze, JESUS wrap or tape. Call Orthopedic office for: * Increased drainage * Redness * Increased pain * Fever Go to ER with shortness of breath or chest pain. Diet: * Regular diet * Increase fluids and fiber to prevent constipation. * Continue to use stool softeners, call office if no bowel motion within 48 hours. Medications See Home Medication List in your packet for medications that you should take after discharge. DVT Prophylaxis: Eliquis Dosin.5 mg, 1 tab every 12 hours x 30 days. Hold for sedation and wean off as soon as pain allows Pain Control: Percocet Dosin/325 mg 1 tab for moderate pain and 2 tabs for severe pain by mouth every 4 hours as needed for pain. Maximum of 10 tabs per day. Hold for sedation, wean off as soon as pain allows Please note that Percocet contains Tylenol (acetaminophen). Maximum daily dose of Tylenol is 4000 mg from all sources. MS contin 15 mg Take 1 tab every 12 hours for severe breakthrough pain that cannot be controlled with percocet alone. This is a long acting pain medication , wean off as soon as pain allows and hold for sedation. Stop MS contin first then stop percocet and wean off to tylenol alone Antibiotics are required prior to any dental work. FOLLOW UP: Follow up with [Jorge Luis] Within 10-14 days, call for appointment Please call our office with any questions or concerns ([phone]) [facility]
--- NOTE | 2019-03-11 10:16 | PN ---
Progress Note - Progress Note Date of Service: 03/11/19 SOAP: Subjective: []Pt seen at bedside. She feels well without CP, SOB, dizziness or nausea. Knee pain is well controlled. Objective: []gen: NAD LLE: left knee dressing changed, incision CDI, thigh soft, EHL ext intact no DF as fused ankle, DP2+, sensation intact to light touch distally Calves supple and nontender without erythema, edema or palpable cords incision: c/di PE: ankle fused- unable to dorsi flex( known pre-op), able to wiggle toes, 2+ DP pulse and intact sensation Assessment: s/p left TKA; POD#2 Plan: PT/OT- WBAT Eliquis BID for DVT prophylaxis home today Sodium repeat prior to DC Vital Signs Temp 98.5 F 03/11/19 08:34 Pulse 98 03/11/19 08:34 Resp 18 03/11/19 10:04 BP 132/68 03/11/19 08:34 Pulse Ox 100 03/11/19 08:34 Intake & Output 03/10/19 03/11/19 03/11/19 18:59 06:59 18:59 Intake Total 360 600 Output Total 1675 1850 350 Balance -1315 -1250 -350 Intake: Oral 360 600 Output: Urine 1675 1850 350 Other: # Bowel Movements 0 Laboratory Last Values Hgb 11.2 g/dL (12.0-16.0) L 03/11/19 06:03 Hct 33 % (35-47) L 03/11/19 06:03 Plt Count 301 10^3/uL (150-450) 03/11/19 06:03 MPV 7.6 fL (7.4-10.4) 03/11/19 06:03 Sodium 131 mmol/L (135-145) L 03/10/19 05:36 Potassium 4.3 mmol/L (3.5-5.0) 03/10/19 05:36 Chloride 102 mmol/L (101-111) 03/10/19 05:36 Carbon Dioxide 19 mmol/L (22-32) L 03/10/19 05:36 Anion Gap 10 mmol/L (2-11) 03/10/19 05:36 BUN 11 mg/dL (6-24) 03/10/19 05:36 Creatinine 0.63 mg/dL (0.51-0.95) 03/10/19 05:36 Est GFR ( Amer) 115.1 (>60) 03/10/19 05:36 Est GFR (Non-Af Amer) 95.1 (>60) 03/10/19 05:36 BUN/Creatinine Ratio 17.5 (8-20) 03/10/19 05:36 Glucose 109 mg/dL (70-100) H 03/10/19 05:36 Calcium 8.1 mg/dL (8.6-10.3) L 03/10/19 05:36
[2019-03-11] MEDS: Cyclobenzaprine TAB* 10 MG PO PRN (11:08)
[2019-03-11 11:55] VITALS: BP 142/58
[2019-03-11] MEDS ORDERED: Bisacodyl SUPP* 10 MG SUPP PR PRN (15:40)
[2019-03-11] MEDS ORDERED: HydroxyUREA CAP* 500 MG CAP PO SCH (21:00)
[2019-03-12] MEDS ORDERED: Scopolamine PATCH Remove* 1 NOTE MISC PATCH OFF ONE (15:47)
== END 2019-03-11 14:44 | disposition home or self-care (01) | DRG 302 ==
LOC: AA 09:01 → SSU 15:40
PROVIDERS: ADMIT Orthopaedic Surgery Adult Reconstructive Orthopaedic Surgery; ATTEND Orthopaedic Surgery Adult Reconstructive Orthopaedic Surgery
PROC: 0SRD069 Replacement of Left Knee Joint with Oxidized Zirconium on Polyethylene Synthetic Substitute, Cemented, Open Approach (ICD-10-PCS; principal; 2019-03-09 12:00)
DX: M17.12 Unilateral primary osteoarthritis, left knee (principal); I10 Essential (primary) hypertension; E78.00 Pure hypercholesterolemia, unspecified; Z96.651 Presence of right artificial knee joint; M21.062 Valgus deformity, not elsewhere classified, left knee; M25.462 Effusion, left knee; J30.2 Other seasonal allergic rhinitis; J32.9 Chronic sinusitis, unspecified; D47.3 Essential (hemorrhagic) thrombocythemia; E78.2 Mixed hyperlipidemia; M50.30 Other cervical disc degeneration, unspecified cervical region; M25.762 Osteophyte, left knee; K21.9 Gastro-esophageal reflux disease without esophagitis; Z79.82 Long term (current) use of aspirin; Z79.899 Other long term (current) drug therapy; Z98.1 Arthrodesis status; Z88.8 Allergy status to other drugs, medicaments and biological substances; Z88.1 Allergy status to other antibiotic agents; Z87.891 Personal history of nicotine dependence
CPT/HCPCS: 36415; 80048; 84300; 85014; 85018; 85049; 88305; 88311; A9270-GY; C1776; J0330; J0690; J1100; J1170; J1885; J2250; J2270; J2405; J2704; J2795; J3010

== ENCOUNTER 2019-12-22 11:12 | Inpatient (IN) ==
[2019-12-22] MEDS ORDERED: NS 0.9% 1000 ml BAG 1,000 ML IV ONE (11:25)
[2019-12-22] MEDS ORDERED: Ondansetron 4 mg VIAL 2 MG/ML 2 ml VIAL IV ONE ×2 (11:26→15:57)
[2019-12-22] MEDS ORDERED: Morphine 4 MG/ML VIAL (1 ml) IV ONE ×2 (11:27→14:11)
[2019-12-22] MEDS ORDERED: Piperacillin/Tazobac ADVAN 3.375 GM in NS 0.9% 100 ml BAG 100 ML IVPB ONE (11:52)
[2019-12-22] MEDS ORDERED: NS 0.9% 1000 ml BAG 1,000 ML IV.FLUID IV ONE (11:53)
[2019-12-22 12:21] LABS: Albumin 4.4 g/dL (3.2-5.2); Albumin/Globulin Ratio 1.5 (1-3); BUN/Creatinine Ratio 20.3 (8-20); C Reactive Protein 110.1 mg/L (<8.01); Calcium 9.5 mg/dL (8.6-10.3); EGFR African American 103.3 (>60); EGFR Non-African American 85.4 (>60); Magnesium 1.7 mg/dL (1.9-2.7); Potassium 3.3 mmol/L (3.5-5.0); Total Bilirubin 1.1 mg/dL (0.2-1.0); Total Protein 7.4 g/dL (6.4-8.9)
[2019-12-22] MEDS ORDERED: Iohexol 300 (CONTRAST) 10 ML SDV IV ONE (12:24)
[2019-12-22 12:58] LABS: ABS Lymphocytes 0.5 10^3/ul (1.0-4.8); ABS Monocytes 0.5 10^3/ul (0-0.8); ABS Neutrophils 9.5 10^3/ul (1.5-7.7); Eosinophil % 0.1 %; Hematocrit 38 % (35-47); Hemoglobin 13.8 g/dL (12.0-16.0); Lymphocyte % 4.7 %; Mean Corpuscular HGB Conc 36 g/dL (31-36); Mean Corpuscular Hemoglobin 37 pg (27-31); Mean Corpuscular Volume 101 fL (80-97); Mean Platelet Volume 7.5 fL (7.4-10.4); Platelet Count 387 10^3/uL (150-450); Red Blood Count 3.77 10^6 /uL (3.70-4.87); Red Cell Distribution Width 13 % (10-15); White Blood Count 10.5 10^3/uL (3.5-10.8)
[2019-12-22 15:58] LABS: Urine Appearance Clear; Urine Bilirubin Negative (Negative); Urine Blood Negative (Negative); Urine Color Yellow; Urine Glucose Negative (Negative); Urine Ketones Negative (Negative); Urine Nitrite Negative (Negative); Urine Protein Negative (Negative); Urine Specific Gravity 1.033 (1.010-1.030); Urine Urobilinogen Negative (Negative)
[2019-12-22] MEDS ORDERED: Ondansetron 4 mg VIAL 2 MG/ML 2 ml VIAL IV PRN (17:28)
[2019-12-22] MEDS ORDERED: Zosyn per Pharmacy NOTE FOLLOW UP PRN (19:35)
[2019-12-22] MEDS: D5W 1/2 NS KCl 20 meq 1000 ml 1,000 ML IV SCH (20:07)
[2019-12-22] MEDS: Pantoprazole VIAL 40 MG VIAL IV SCH (20:51)
[2019-12-22] MEDS: Piperacillin/Tazobac ADVAN 3.375 GM in NS 0.9% 100 ml BAG 100 ML IV SCH (20:54)
[2019-12-22] MEDS: Heparin 5000 UNITS/ML 1 mL VIAL SUBCUT SCH (22:21)
[2019-12-23] MEDS: D5W 1/2 NS KCl 20 meq 1000 ml 1,000 ML IV SCH ×3 (03:41→17:34)
[2019-12-23] MEDS: Piperacillin/Tazobac ADVAN 3.375 GM in NS 0.9% 100 ml BAG 100 ML IV SCH ×3 (03:42→19:28)
[2019-12-23] MEDS: Heparin 5000 UNITS/ML 1 mL VIAL SUBCUT SCH ×4 (05:46→21:40)
[2019-12-23 08:28] LABS: ABS Eosinophils 0.1 10^3/ul (0-0.6); ABS Lymphocytes 1.1 10^3/ul (1.0-4.8); ABS Monocytes 0.6 10^3/ul (0-0.8); ABS Neutrophils 4.4 10^3/ul (1.5-7.7); Hematocrit 34 % (35-47); Hemoglobin 11.5 g/dL (12.0-16.0); Mean Corpuscular HGB Conc 34 g/dL (31-36); Mean Corpuscular Hemoglobin 35 pg (27-31); Mean Corpuscular Volume 102 fL (80-97); Mean Platelet Volume 7.4 fL (7.4-10.4); Nucleated Red Blood Cells % 0.1; Platelet Count 296 10^3/uL (150-450); Red Blood Count 3.29 10^6 /uL (3.70-4.87); Red Cell Distribution Width 13 % (10-15); White Blood Count 6.1 10^3/uL (3.5-10.8)
[2019-12-23 08:33] LABS: BUN/Creatinine Ratio 11.4 (8-20); Calcium 8.6 mg/dL (8.6-10.3); EGFR African American 101.6 (>60); Potassium 3.6 mmol/L (3.5-5.0)
[2019-12-23] MEDS ORDERED: BECLOMETHASONE BOTH NARES SCH (09:00)
[2019-12-23] MEDS ORDERED: Influenza VAC *QUAD* 2020-21* 0.5 ML SYRINGE IM ONE (09:00)
[2019-12-23] MEDS ORDERED: Pneumococcal Vac 23-Polyvalent IM ONE (09:00)
[2019-12-23] MEDS: Pantoprazole VIAL 40 MG VIAL IV SCH (17:34)
[2019-12-24] MEDS: D5W 1/2 NS KCl 20 meq 1000 ml 1,000 ML IV SCH ×3 (00:40→14:15)
[2019-12-24] MEDS: Piperacillin/Tazobac ADVAN 3.375 GM in NS 0.9% 100 ml BAG 100 ML IV SCH ×3 (04:10→21:03)
[2019-12-24] MEDS: Heparin 5000 UNITS/ML 1 mL VIAL SUBCUT SCH ×2 (05:05→13:52)
[2019-12-24] MEDS: QNASL BOTH NARES SCH (09:24)
[2019-12-24] MEDS: Pantoprazole VIAL 40 MG VIAL IV SCH (17:56)
[2019-12-25] MEDS: Heparin 5000 UNITS/ML 1 mL VIAL SUBCUT SCH ×2 (00:11→05:16)
[2019-12-25] MEDS: Piperacillin/Tazobac ADVAN 3.375 GM in NS 0.9% 100 ml BAG 100 ML IV SCH (05:16)
[2019-12-25 07:27] VITALS: BP 140/64
[2019-12-25 08:14] LABS: ABS Eosinophils 0.1 10^3/ul (0-0.6); ABS Lymphocytes 0.8 10^3/ul (1.0-4.8); ABS Monocytes 0.4 10^3/ul (0-0.8); ABS Neutrophils 3.8 10^3/ul (1.5-7.7); Eosinophil % 1.8 %; Hematocrit 33 % (35-47); Lymphocyte % 15.8 %; Mean Corpuscular HGB Conc 36 g/dL (31-36); Mean Corpuscular Hemoglobin 36 pg (27-31); Mean Corpuscular Volume 101 fL (80-97); Mean Platelet Volume 7.2 fL (7.4-10.4); Platelet Count 315 10^3/uL (150-450); Red Blood Count 3.29 10^6 /uL (3.70-4.87); Red Cell Distribution Width 12 % (10-15); White Blood Count 5.1 10^3/uL (3.5-10.8)
[2019-12-25] MEDS: QNASL BOTH NARES SCH (09:27)
== END 2019-12-25 10:36 | disposition home or self-care (01) | DRG 392 ==
LOC: ED 11:12 → SSU 17:15
PROVIDERS: ADMIT Internal Medicine; ATTEND Surgery

== ENCOUNTER 2021-05-19 06:54 | Inpatient (IN) ==
[~2021-05-19 06:54] MED LIST changes: -Acetaminophen TAB* 325 MG PO ONE; +Buffered Lidocaine 1% SYRIN 1 ml INTRADERM ONE; -Famotidine IV* 10 MG/ML 2 ML (20 mg) IV ONE; -Lactated Ringers 1000 ML Bag* 1,000 ML IV SCH; +Lactated Ringers 1000 ml BAG 1,000 ML IV SCH; -Tranexamic Acid 1,000 MG in NS 0.9% 50 ML* (outpatient use) IV SCH
[2021-05-19] MEDS ORDERED: ceFAZolin 2 GM in NS PREMIX 2 GM/100 ML BAG IVPB ONE (07:13)
[2021-05-19] MEDS ORDERED: Lidocaine 2% PF 5 ML VIAL ONE ×2 (08:19→09:04)
[2021-05-19] MEDS ORDERED: Propofol 10 MG/ML 20 ML BTL ONE ×2 (08:19→09:04)
[2021-05-19] MEDS ORDERED: Ondansetron 4 mg VIAL 2 MG/ML 2 ml VIAL ONE ×3 (08:20→10:05)
[2021-05-19] MEDS ORDERED: Ondansetron 4 mg VIAL 2 MG/ML 2 ml VIAL IV ONE (08:23)
[2021-05-19] MEDS ORDERED: Midazolam 2 mg/2 ml VIAL 1 mg/ml 2 ml VIAL (2 mg) ONE ×3 (08:25→09:21)
[2021-05-19] MEDS ORDERED: Acetaminophen IV 1 GM/100ML 0 ML IV ONE (09:04)
[2021-05-19] MEDS ORDERED: Dexamethasone IV 4 MG/ML VIAL 1 ml VIAL ONE ×2 (09:04→10:05)
[2021-05-19] MEDS ORDERED: Rocuronium 50 mg VIAL 10 mg/ml 5 ml VIAL (50 mg) ONE ×2 (09:05→09:10)
[2021-05-19] MEDS ORDERED: fentaNYL 250 mcg/5 ml 50 MCG/ML 5 ml VIAL (250 MCG) ONE ×2 (09:05→09:10)
[2021-05-19] MEDS ORDERED: Ketamine HCL 50 mg/ml 10 ml VIAL (500 MG) ONE (09:11)
[2021-05-19] MEDS ORDERED: ROPIVACAINE 5 MG/ML 30 ML BTL (0.5%) ONE (09:22)
[2021-05-19] MEDS ORDERED: Magnesium Hydroxide LIQ 30 ML UDC PO PRN (10:09)
[2021-05-19] MEDS ORDERED: Ondansetron 4 mg VIAL 2 MG/ML 2 ml VIAL IV PRN (10:09)
[2021-05-19] MEDS ORDERED: Lactulose 30 ml UDC PO PRN (10:09)
[2021-05-19] MEDS ORDERED: diPHENhydraMINE IV 50 MG/ML 1 ml VIAL (BENADRYL) IV PRN (10:09)
[2021-05-19] MEDS ORDERED: diPHENhydraMINE 25 mg TAB PO PRN (10:09)
[2021-05-19] MEDS ORDERED: Ondansetron ODT 4 mg TAB 4 MG TAB PO PRN (10:09)
[2021-05-19] MEDS ORDERED: DiMENhydriNATE IV 50 mg/ml 1 ml VIAL IV PUSH PRN (11:22)
[2021-05-19] MEDS ORDERED: Naloxone 0.4 mg VIAL 0.4 mg/ml 1 ml VIAL IV PRN (11:22)
[2021-05-19] MEDS ORDERED: HYDROmorphone 1 MG/1 ML SYRINGE ONE (12:36)
[2021-05-19] MEDS: HYDROmorphone 1 MG/1 ML SYRINGE IV PRN ×5 (12:37→13:01)
[2021-05-19] MEDS: Lactated Ringers 1000 ml BAG 1,000 ML IV SCH (14:31)
[2021-05-19] MEDS ORDERED: Albuterol HFA INHALER 8 gm MDI INH PRN (14:42)
[2021-05-19] MEDS: ceFAZolin 1 GM ADVAN 1 GM in NS 0.9% 50 ML 50 ML IVPB SCH (17:26)
[2021-05-19] MEDS ORDERED: Lidocaine PATCH 5% PATCH TRANSDERM PRN (18:07)
[2021-05-19] MEDS: Magnesium Hydroxide LIQ 30 ML UDC PO SCH (23:53)
[2021-05-20] MEDS: ceFAZolin 1 GM ADVAN 1 GM in NS 0.9% 50 ML 50 ML IVPB SCH ×2 (01:12→09:58)
[2021-05-20] MEDS: Lactated Ringers 1000 ml BAG 1,000 ML IV SCH (01:15)
[2021-05-20 05:10] LABS: ABS Lymphocytes 0.9 10^3/ul (1.0-4.8); ABS Monocytes 0.8 10^3/ul (0-0.8); ABS Neutrophils 4.5 10^3/ul (1.5-7.7); Eosinophil % 0.2 %; Hematocrit 31 % (35-47); Hemoglobin 10.7 g/dL (12.0-16.0); Lymphocyte % 14.2 %; Mean Corpuscular HGB Conc 34 g/dL (31-36); Mean Corpuscular Hemoglobin 35 pg (27-31); Mean Corpuscular Volume 103 fL (80-97); Mean Platelet Volume 7.6 fL (7.4-10.4); Platelet Count 417 10^3/uL (150-450); Red Blood Count 3.04 10^6 /uL (3.70-4.87); Red Cell Distribution Width 13 % (10-15); White Blood Count 6.2 10^3/uL (3.5-10.8)
[2021-05-20 05:27] LABS: Calcium 8.7 mg/dL (8.6-10.3); Potassium 3.7 mmol/L (3.5-5.0); eGFR CKD-EPI 74.5 (>60)
[2021-05-20] MEDS: Magnesium Hydroxide LIQ 30 ML UDC PO SCH ×2 (08:06→22:10)
[2021-05-20] MEDS: Vitamin THERAPEUTIC TAB PO SCH (08:09)
[2021-05-21 07:35] VITALS: BP 99/62
[2021-05-21] MEDS: Magnesium Hydroxide LIQ 30 ML UDC PO SCH (08:21)
[2021-05-21] MEDS: Vitamin THERAPEUTIC TAB PO SCH (09:08)
== END 2021-05-21 13:00 | disposition home or self-care (01) | DRG 470 ==
LOC: AA 06:54 → SSU 10:10
PROVIDERS: ADMIT Orthopaedic Surgery Adult Reconstructive Orthopaedic Surgery; ATTEND Orthopaedic Surgery Adult Reconstructive Orthopaedic Surgery